=== PATIENT | male | born 1965 | race Two or more races ===

== ENCOUNTER 2022-07-14 01:59 | Inpatient (IN) | payer MEDICARE, OTHER ==
[~2022-07-14] VITALS: Ht 170.2 cm; Wt 86.5 kg
[2022-07-14 02:31] LABS: Basophils # (auto) 0.1 10 ^3/uL (0-0.2); Basophils % (auto) 0.9 % (0.0-2.0); Eosinophils # (auto) 0.4 10 ^3/uL (0-0.8); Eosinophils % (auto) 3.6 % (0.0-7.0); Hematocrit 46.1 % (41.0-53.0); Hemoglobin 15.5 g/dL (13.5-17.5); Lymphocytes # (auto) 1.6 10 ^3/uL (0.4-5.4); Lymphocytes % (auto) 14.4 % (10.0-50.0); Mean Corpuscular Hemoglobin 28.9 pg (28.0-32.0); Mean Corpuscular Hgb Conc. 33.7 g/dL (32.0-36.0); Mean Corpuscular Volume 85.7 fL (80.0-100.0); Monocytes % (auto) 9.2 % (0.0-12.0); Neutrophils # (auto) 7.9 10 ^3/uL (1.6-8.6); Neutrophils % (auto) 71.9 % (37.0-80.0); Nucleated Red Blood Cells % 0.1 %; Red Blood Cells 5.38 10^6/uL (4.5-5.90); Red Cell Distribution Width 16.2 % (11.8-14.3); White Blood Cell 10.9 10^3/uL (4.4-10.8)
[2022-07-14 02:50] LABS: Albumin 3.7 g/dL (3.4-5.0); BUN/Creatinine Ratio 49.5; Calcium 9.1 mg/dL (8.5-10.1); Potassium 4.9 mmol/L (3.5-5.1)
[2022-07-14 02:52] LABS: Bilirubin, Total 0.3 mg/dL (0.2-1.0)
[2022-07-14] MEDS ORDERED: MORPHINE SULFATE INJ 2 MG/ml SYRG IV PRN (06:15)
[2022-07-14] MEDS ORDERED: ENOXAPARIN SOD 100 MG/1 ML SYRINGE SC ONE (06:15)
[2022-07-14] MEDS ORDERED: NITROGLYCERIN 0.4 MG SL TAB SL PRN (06:15)
[2022-07-14] MEDS ORDERED: ONDANSETRON HCL 4 MG/2 ML VIAL IV PRN (06:15)
[2022-07-14] MEDS ORDERED: FUROSEMIDE 40 MG TAB PO SCH (10:00)
[2022-07-14] MEDS ORDERED: ASPirin 81 mg TAB PO SCH (10:00)
[2022-07-14] MEDS ORDERED: PANTOPRAZOLE 40 MG/10 ML VIAL INJ IV SCH (10:00)
[2022-07-14] MEDS ORDERED: CARVEDILOL 3.125 MG TAB PO SCH (10:00)
[2022-07-14 18:00] VITALS: BP 120/82
== END 2022-07-14 19:08 | disposition left against medical advice (07) | DRG 282 ==
LOC: ER 01:59 → EDBD 01:59 → TELE 06:05
PROVIDERS: ADMIT Nurse Practitioner; ATTEND Internal Medicine
DX: I21.4 Non-ST elevation (NSTEMI) myocardial infarction (principal); I11.0 Hypertensive heart disease with heart failure; I50.9 Heart failure, unspecified; Z53.29 Procedure and treatment not carried out because of patient's decision for other reasons; Z20.822 Contact with and (suspected) exposure to COVID-19; Z88.0 Allergy status to penicillin
CPT/HCPCS: 36415; 71045; 80053; 83880; 84484; 85025; 85379; 87426; 93005; 93306; 96372; 96374; C9113; G0378

== ENCOUNTER 2023-06-12 11:01 | Inpatient (IN) | payer MEDICARE, OTHER ==
[~2023-06-12] VITALS: Ht 162.6 cm; Wt 63.3 kg
[2023-06-12 11:43] LABS: Basophils # (auto) 0.1 10 ^3/uL (0-0.2); Basophils % (auto) 0.4 % (0.0-2.0); Eosinophils # (auto) 0.2 10 ^3/uL (0-0.8); Eosinophils % (auto) 1.7 % (0.0-7.0); Hematocrit 45.7 % (41.0-53.0); Hemoglobin 15.4 g/dL (13.5-17.5); Lymphocytes # (auto) 1.1 10 ^3/uL (0.4-5.4); Lymphocytes % (auto) 7.6 % (10.0-50.0); Mean Corpuscular Hemoglobin 28.8 pg (28.0-32.0); Mean Corpuscular Hgb Conc. 33.6 g/dL (32.0-36.0); Mean Corpuscular Volume 85.6 fL (80.0-100.0); Monocytes % (auto) 6.7 % (0.0-12.0); Neutrophils # (auto) 12.2 10 ^3/uL (1.6-8.6); Neutrophils % (auto) 83.6 % (37.0-80.0); Nucleated Red Blood Cells % 0.1 %; Red Blood Cells 5.34 10^6/uL (4.5-5.90); Red Cell Distribution Width 17.8 % (11.8-14.3); White Blood Cell 14.6 10^3/uL (4.4-10.8)
[2023-06-12 11:57] LABS: Alanine Aminotransferase 32 U/L (7-40); Albumin 4.1 g/dL (3.2-4.8); Alkaline Phosphatase 164 U/L (46-116); Anion Gap 7 (5-15); Aspartate Aminotransferase 43 U/L (13-40); BUN/Creatinine Ratio 34.3 (10.0-20.0); Blood Urea Nitrogen 34 mg/dL (9-23); Calcium 8.9 mg/dL (8.7-10.4); Carbon Dioxide 25 mmol/L (20-30); Chloride 108 mmol/L (98-107); Glucose 115 mg/dL (74-106); Potassium 4.4 mmol/L (3.5-5.1); Sodium 140 mmol/L (136-145)
[2023-06-12 11:58] LABS: Bilirubin, Total 0.8 mg/dL (0.2-1.0); Total Protein 6.6 g/dL (5.7-8.2)
[2023-06-12 12:05] LABS: INR 1.07 (0.9-1.15); Partial Thromboplastin Time 28.8 SEC (24.5-34.5); Prothrombin Time 11.2 sec (9.3-11.8)
[2023-06-12 12:57] LABS: Urine Epithelial Cast None Seen /hpf (<5)
[2023-06-12 13:13] VITALS: PULSE 102; RESP 18; O2SAT 97
[2023-06-12 13:21] LABS: Amphetamine Screen, Urine Pos (NEGATIVE); Barbiturate Scree,Urine Neg (NEGATIVE); Benzodiazephine Screen, Urine Neg (NEGATIVE); Cannabinoid Screen, Urine Pos (NEGATIVE); Cocaine Screen, Urine Neg (NEGATIVE); Opiate Scree,Urine Neg (NEGATIVE); Phencyclidine Screen, Urine Neg (NEGATIVE)
[2023-06-12] MEDS ORDERED: PANT40T PO (13:27)
[2023-06-12] MEDS ORDERED: ATOR40TA52 PO (13:27)
[2023-06-12] MEDS ORDERED: ESCI5TAB20 PO (13:27)
[2023-06-12] MEDS ORDERED: FURO40TA4 PO (13:27)
[2023-06-12] MEDS ORDERED: CARV12.544 PO (13:27)
[2023-06-12] MEDS ORDERED: ASPI-628 PO (13:27)
[2023-06-12] MEDS ORDERED: LISI10TA34 PO (13:27)
[2023-06-12] MEDS ORDERED: ONDANSETRON HCL 4 MG/2 ML VIAL IV PRN (13:30)
[2023-06-12] MEDS ORDERED: ACETAMINOPHEN 325 MG TAB PO PRN (13:30)
[2023-06-12] MEDS ORDERED: DOCUSATE SOD 100 MG CAP PO PRN (13:30)
[2023-06-12] MEDS ORDERED: MORPHINE SULFATE INJ 2 MG/ml SYRG IV PRN (13:30)
[2023-06-12] MEDS ORDERED: FUROSEMIDE 100 MG/10ML VIAL IV ONE (13:30)
[2023-06-12] MEDS ORDERED: NITROGLYCERIN 0.4 MG SL TAB SL PRN (13:30)
[2023-06-12] MEDS ORDERED: ASPirin-EC 325mg tab PO ONE (13:30)
[2023-06-12 13:37] LABS: Urine Bacteria FEW /hpf (None Seen); Urine Blood 2+ /uL (Negative); Urine Budding Yeast FEW /hpf (None Seen); Urine Clarity Clear (Clear); Urine Color Colorless (Yellow); Urine Protein, UAD Negative (Negative); Urine Specific Gravity 1.008 (1.001-1.035); Urine Urobilinogen Normal (Negative); Urine WBC 42 /hpf (0 - 3); Urine pH 5.5 (5.0-8.0)
[2023-06-12] MEDS ORDERED: LABETALOL HCL 5 MG/ML 4ML SYRINGE IV PRN (13:45)
[2023-06-12] MEDS ORDERED: cefTRIAXone 1GM/50ML D5W 50 ML IV ONE (14:00)
[2023-06-12] MEDS ORDERED: CIPROFLOXACIN 400MG/200ML 200 ML IV ONE (14:00)
[2023-06-12] MEDS ORDERED: DEXTROSE (50%) 50ML SYRG IV PRN (14:15)
[2023-06-12] MEDS: ACCU-CHEK COMFORT CURVE STRIP VI SCH ×2 (17:00→21:43)
[2023-06-12] MEDS: InsuLIN REG 1unit/0.01ml Soln (100units/ml) SC SCH ×2 (17:32→21:43)
[2023-06-12] MEDS: FUROSEMIDE 40 MG/4 ML VIAL IV SCH (18:45)
[2023-06-12 20:33] VITALS: PULSE 92; RESP 19; O2SAT 96
[2023-06-12] MEDS: CIPROFLOXACIN 400MG/200ML 200 ML IV SCH (21:41)
[2023-06-12] MEDS: CARVEDILOL 12.5 MG TAB PO SCH (21:43)
[2023-06-12] MEDS ORDERED: ATORVASTATIN 20 MG TAB PO SCH (22:00)
[2023-06-12] MEDS ORDERED: ATORVASTATIN 20 MG TAB PO ONE (22:00)
[2023-06-13] VITALS (16 sets, daily range): BP systolic 111–151; BP diastolic 72–109; PULSE 78–99; RESP 14–70; TEMP 97.8–98.6; O2SAT 95–98
[2023-06-13 06:41] LABS: Alanine Aminotransferase 27 U/L (7-40); Albumin 4.3 g/dL (3.2-4.8); Alkaline Phosphatase 162 U/L (46-116); Anion Gap 7 (5-15); Aspartate Aminotransferase 38 U/L (13-40); BUN/Creatinine Ratio 22.2 (10.0-20.0); Calcium 9.4 mg/dL (8.5-10.1); Carbon Dioxide 27 mmol/L (20-30); Chloride 102 mmol/L (98-107); Glucose 99 mg/dL (74-106); LDL Cholesterol 88 mg/dL (< 100); Potassium 3.8 mmol/L (3.5-5.1); Sodium 136 mmol/L (136-145); Triglycerides 120 mg/dL (< 150)
[2023-06-13 06:42] LABS: Bilirubin, Total 1.1 mg/dL (0.2-1.0); Cholesterol 145 mg/dL (< 200); HDL Cholesterol 43 mg/dL (40-59); Total Protein 7.1 g/dL (5.7-8.2)
[2023-06-13 06:43] LABS: Blood Urea Nitrogen 24 mg/dL (9-23)
[2023-06-13] MEDS: FUROSEMIDE 40 MG/4 ML VIAL IV SCH ×2 (06:43→18:18)
[2023-06-13] MEDS: PANTOPRAZOLE 40 MG TAB PO SCH (06:44)
[2023-06-13] MEDS: InsuLIN REG 1unit/0.01ml Soln (100units/ml) SC SCH ×4 (06:44→22:00)
[2023-06-13] MEDS: ACCU-CHEK COMFORT CURVE STRIP VI SCH ×4 (06:44→22:00)
[2023-06-13 07:28] LABS: Basophils # (auto) 0.1 10 ^3/uL (0-0.2); Basophils % (auto) 0.7 % (0.0-2.0); Eosinophils # (auto) 0.3 10 ^3/uL (0-0.8); Eosinophils % (auto) 2.6 % (0.0-7.0); Hematocrit 46.9 % (41.0-53.0); Hemoglobin 15.4 g/dL (13.5-17.5); Lymphocytes # (auto) 1.8 10 ^3/uL (0.4-5.4); Lymphocytes % (auto) 13.8 % (10.0-50.0); Mean Corpuscular Hemoglobin 27.7 pg (28.0-32.0); Mean Corpuscular Hgb Conc. 32.9 g/dL (32.0-36.0); Monocytes # (auto) 1.2 10 ^3/uL (0-1.3); Monocytes % (auto) 9.4 % (0.0-12.0); Neutrophils # (auto) 9.4 10 ^3/uL (1.6-8.6); Neutrophils % (auto) 73.5 % (37.0-80.0); Nucleated Red Blood Cells % 0.1 %; Red Blood Cells 5.58 10^6/uL (4.5-5.90); Red Cell Distribution Width 17.2 % (11.8-14.3); White Blood Cell 12.7 10^3/uL (4.4-10.8)
[2023-06-13] MEDS ORDERED: cefTRIAXone 1GM/50ML D5W 50 ML IV SCH (09:00)
[2023-06-13] MEDS ORDERED: HEPARIN SODIUM (PORCINE) 5000 UNITS/ML 1ML VIAL IV ONE (09:15)
[2023-06-13] MEDS ORDERED: CLOPIDOGREL 300 MG TAB PO ONE (09:15)
[2023-06-13] MEDS ORDERED: HEPARIN DRIP/D5W 100UNITS/ML 250 ML IV SCH (09:15)
[2023-06-13 09:40] LABS: INR 1.09 (0.9-1.15); Partial Thromboplastin Time 30.2 SEC (24.5-34.5); Prothrombin Time 11.4 sec (9.3-11.8)
[2023-06-13] MEDS: CARVEDILOL 12.5 MG TAB PO SCH ×2 (10:00→22:06)
[2023-06-13] MEDS: LISINOPRIL 10 MG TAB PO SCH (10:00)
[2023-06-13] MEDS ORDERED: CLOPIDOGREL BISULFATE 75 MG TAB PO SCH (10:00)
[2023-06-13] MEDS: ASPirin-EC 81 mg tab PO SCH (10:00)
[2023-06-13] MEDS: CIPROFLOXACIN 400MG/200ML 200 ML IV SCH ×2 (10:00→22:04)
[2023-06-13] MEDS ORDERED: ENOXAPARIN SOD 40 MG/0.4 ML SYRINGE SC SCH (10:00)
[2023-06-13] MEDS ORDERED: ANGIOMAX 250 MG VIAL IV ONE (11:03)
[2023-06-13] MEDS ORDERED: VERAPAMIL 2.5MG/ML INJ 2ML VIAL IV ONE (11:03)
[2023-06-13] MEDS ORDERED: SODIUM CHL 0.9% 0 ML ONE (11:04)
[2023-06-13] MEDS ORDERED: LIDOCAINE 2%HCL (LOCAL ANESTH.) INJ 20ML MDV ONE (11:04)
[2023-06-13] MEDS ORDERED: fentaNYL CITRATE 100 MCG/2 ML VL ONE (11:04)
[2023-06-13] MEDS ORDERED: MIDAZOLAM HCL 2MG/2ML 2ml VIAL (1mg/ml) ONE (11:05)
[2023-06-13] MEDS ORDERED: HEPARIN SODIUM (PORCINE) 5000 UNITS/ML 1ML VIAL ONE (11:08)
[2023-06-13] MEDS ORDERED: ATORVASTATIN 20 MG TAB PO SCH (22:00)
[2023-06-14] VITALS (7 sets, daily range): BP systolic 110–146; BP diastolic 67–94; PULSE 59–107; RESP 18–86; TEMP 97.4–98.6; O2SAT 92–100
[2023-06-14] MEDS: ACCU-CHEK COMFORT CURVE STRIP VI SCH ×4 (06:09→22:00)
[2023-06-14] MEDS: InsuLIN REG 1unit/0.01ml Soln (100units/ml) SC SCH ×4 (06:09→22:00)
[2023-06-14] MEDS: PANTOPRAZOLE 40 MG TAB PO SCH (06:19)
[2023-06-14] MEDS: FUROSEMIDE 40 MG/4 ML VIAL IV SCH ×2 (06:19→18:37)
[2023-06-14 06:57] LABS: Alanine Aminotransferase 24 U/L (7-40); Alkaline Phosphatase 156 U/L (46-116); Anion Gap 6 (5-15); Aspartate Aminotransferase 29 U/L (13-40); BUN/Creatinine Ratio 24.7 (10.0-20.0); Blood Urea Nitrogen 22 mg/dL (9-23); Calcium 9.1 mg/dL (8.7-10.4); Carbon Dioxide 27 mmol/L (20-30); Chloride 102 mmol/L (98-107); Glucose 114 mg/dL (74-106); Magnesium 1.9 mg/dL (1.6-2.6); Sodium 135 mmol/L (136-145)
[2023-06-14 06:58] LABS: Albumin 4.2 g/dL (3.2-4.8); Bilirubin, Total 1.1 mg/dL (0.2-1.0)
[2023-06-14 06:59] LABS: Basophils # (auto) 0.1 10 ^3/uL (0-0.2); Basophils % (auto) 0.8 % (0.0-2.0); Eosinophils # (auto) 0.3 10 ^3/uL (0-0.8); Eosinophils % (auto) 2.4 % (0.0-7.0); Hematocrit 49.5 % (41.0-53.0); Hemoglobin 16.5 g/dL (13.5-17.5); Lymphocytes # (auto) 1.6 10 ^3/uL (0.4-5.4); Lymphocytes % (auto) 14.9 % (10.0-50.0); Mean Corpuscular Hemoglobin 27.9 pg (28.0-32.0); Mean Corpuscular Hgb Conc. 33.3 g/dL (32.0-36.0); Mean Corpuscular Volume 83.7 fL (80.0-100.0); Monocytes # (auto) 1.1 10 ^3/uL (0-1.3); Monocytes % (auto) 10.5 % (0.0-12.0); Neutrophils # (auto) 7.6 10 ^3/uL (1.6-8.6); Neutrophils % (auto) 71.4 % (37.0-80.0); Nucleated Red Blood Cells % 0.2 %; Red Blood Cells 5.91 10^6/uL (4.5-5.90); Red Cell Distribution Width 17.3 % (11.8-14.3); White Blood Cell 10.6 10^3/uL (4.4-10.8)
[2023-06-14 08:21] LABS: CRP High Sensitivity 0.27 mg/dL (<1.0)
[2023-06-14] MEDS: ASPirin-EC 81 mg tab PO SCH (11:04)
[2023-06-14] MEDS: CARVEDILOL 12.5 MG TAB PO SCH ×2 (11:04→22:47)
[2023-06-14] MEDS: MAGNESIUM SULFATE 1GM/100ML 100 ML IV SCH ×2 (11:04→12:08)
[2023-06-14] MEDS: LISINOPRIL 10 MG TAB PO SCH (11:05)
[2023-06-14] MEDS ORDERED: GADOTERATE MEG 10 MMOL/20ml INJ (0.5MMOL/ml) IV ONE (17:42)
[2023-06-14] MEDS: NITROFURANTOIN 100 mg CAP PO SCH (22:46)
[2023-06-14] MEDS: ATORVASTATIN 20 MG TAB PO SCH (22:49)
[2023-06-15] VITALS (8 sets, daily range): BP systolic 100–113; BP diastolic 63–80; PULSE 67–89; RESP 18–20; TEMP 97.6–98.6; O2SAT 91–100
[2023-06-15 05:16] LABS: Basophils # (auto) 0.1 10 ^3/uL (0-0.2); Basophils % (auto) 0.9 % (0.0-2.0); Eosinophils # (auto) 0.3 10 ^3/uL (0-0.8); Eosinophils % (auto) 2.8 % (0.0-7.0); Hematocrit 47.3 % (41.0-53.0); Hemoglobin 15.5 g/dL (13.5-17.5); Lymphocytes # (auto) 1.5 10 ^3/uL (0.4-5.4); Lymphocytes % (auto) 14.2 % (10.0-50.0); Mean Corpuscular Hemoglobin 27.8 pg (28.0-32.0); Mean Corpuscular Hgb Conc. 32.8 g/dL (32.0-36.0); Mean Corpuscular Volume 84.5 fL (80.0-100.0); Neutrophils # (auto) 7.5 10 ^3/uL (1.6-8.6); Neutrophils % (auto) 72.1 % (37.0-80.0); Nucleated Red Blood Cells % 0.1 %; Red Blood Cells 5.59 10^6/uL (4.5-5.90); White Blood Cell 10.4 10^3/uL (4.4-10.8)
[2023-06-15 05:36] LABS: Alanine Aminotransferase 21 U/L (7-40); Albumin 3.9 g/dL (3.2-4.8); Alkaline Phosphatase 142 U/L (46-116); Anion Gap 6 (5-15); Aspartate Aminotransferase 26 U/L (13-40); BUN/Creatinine Ratio 19.8 (10.0-20.0); Bilirubin, Total 0.7 mg/dL (0.2-1.0); Blood Urea Nitrogen 21 mg/dL (9-23); Calcium 8.9 mg/dL (8.7-10.4); Carbon Dioxide 26 mmol/L (20-30); Chloride 101 mmol/L (98-107); Glucose 110 mg/dL (74-106); Magnesium 2.2 mg/dL (1.6-2.6); Potassium 4.2 mmol/L (3.5-5.1); Sodium 133 mmol/L (136-145); Total Protein 6.7 g/dL (5.7-8.2)
[2023-06-15] MEDS: ACCU-CHEK COMFORT CURVE STRIP VI SCH ×4 (06:30→22:00)
[2023-06-15] MEDS: FUROSEMIDE 40 MG/4 ML VIAL IV SCH ×2 (07:36→18:11)
[2023-06-15] MEDS: PANTOPRAZOLE 40 MG TAB PO SCH (07:37)
[2023-06-15] MEDS: InsuLIN REG 1unit/0.01ml Soln (100units/ml) SC SCH ×4 (07:44→22:00)
[2023-06-15] MEDS: ASPirin-EC 81 mg tab PO SCH (09:06)
[2023-06-15] MEDS: NITROFURANTOIN 100 mg CAP PO SCH (09:06)
[2023-06-15] MEDS: CITALOPRAM HYDROBR 20 MG TAB PO SCH (09:06)
[2023-06-15] MEDS: CARVEDILOL 12.5 MG TAB PO SCH (09:07)
[2023-06-15] MEDS: LISINOPRIL 10 MG TAB PO SCH (10:00)
[2023-06-15 13:07] LABS: Body Fluid Red Blood Cells 3 CUMM (0-2000); Body Fluid White Blood Cells 3 CUMM (0-200)
[2023-06-16] VITALS (7 sets, daily range): BP systolic 103–134; BP diastolic 70–89; PULSE 57–84; RESP 18–21; TEMP 97.7–98.3; O2SAT 96–100
[2023-06-16] MEDS: CARVEDILOL 12.5 MG TAB PO SCH ×3 (02:16→21:28)
[2023-06-16] MEDS: NITROFURANTOIN 100 mg CAP PO SCH ×3 (02:16→21:26)
[2023-06-16] MEDS: ATORVASTATIN 20 MG TAB PO SCH ×2 (02:17→21:27)
[2023-06-16] MEDS: InsuLIN REG 1unit/0.01ml Soln (100units/ml) SC SCH ×4 (06:46→21:45)
[2023-06-16] MEDS: ACCU-CHEK COMFORT CURVE STRIP VI SCH ×4 (06:46→21:28)
[2023-06-16] MEDS: FUROSEMIDE 40 MG/4 ML VIAL IV SCH ×2 (06:48→17:14)
[2023-06-16] MEDS: PANTOPRAZOLE 40 MG TAB PO SCH (06:48)
[2023-06-16 08:06] LABS: PSA Free 1.32 ng/mL; Prostate Specific Antigen 13.1 ng/mL (0.0-4.0)
[2023-06-16] MEDS: ASPirin-EC 81 mg tab PO SCH (09:19)
[2023-06-16] MEDS: CITALOPRAM HYDROBR 20 MG TAB PO SCH (09:19)
[2023-06-16] MEDS: LISINOPRIL 10 MG TAB PO SCH (09:20)
[2023-06-16] MEDS ORDERED: ALBUAER3 INH (13:20)
[2023-06-16] MEDS ORDERED: METF-370 PO (13:20)
[2023-06-17 05:00] VITALS: BP 123/91; PULSE 84; RESP 20; TEMP 98.2; O2SAT 100
[2023-06-17] MEDS: PANTOPRAZOLE 40 MG TAB PO SCH (05:43)
[2023-06-17] MEDS: FUROSEMIDE 40 MG/4 ML VIAL IV SCH (05:45)
[2023-06-17] MEDS: ACCU-CHEK COMFORT CURVE STRIP VI SCH ×2 (05:46→11:46)
[2023-06-17] MEDS: InsuLIN REG 1unit/0.01ml Soln (100units/ml) SC SCH ×2 (05:47→11:30)
[2023-06-17 08:00] VITALS: PULSE 80; PULSE 85; RESP 20; O2SAT 94
[2023-06-17 09:00] VITALS: BP 138/90; PULSE 85; RESP 18; TEMP 98.1; O2SAT 94
[2023-06-17] MEDS: ASPirin-EC 81 mg tab PO SCH (09:34)
[2023-06-17] MEDS: NITROFURANTOIN 100 mg CAP PO SCH (09:34)
[2023-06-17] MEDS: CARVEDILOL 12.5 MG TAB PO SCH (09:35)
[2023-06-17] MEDS: LISINOPRIL 10 MG TAB PO SCH (09:35)
[2023-06-17] MEDS: CITALOPRAM HYDROBR 20 MG TAB PO SCH (09:35)
[2023-06-17 13:00] VITALS: BP 129/81; PULSE 81; RESP 18; TEMP 98.1; O2SAT 94
[2023-06-17 16:59] VITALS: BP 129/79; PULSE 84; RESP 20; TEMP 98.4; O2SAT 94
== END 2023-06-17 18:56 | disposition home health service (06) | DRG 280 ==
LOC: EDBD 11:01 → ER 11:01 → TELE 13:35 → TELE-WESTW 06-13 15:56
PROVIDERS: ADMIT Internal Medicine Geriatric Medicine; ATTEND Internal Medicine
PROC: 4A023N7 Measurement of Cardiac Sampling and Pressure, Left Heart, Percutaneous Approach (ICD-10-PCS; principal; 2023-06-13)
PROC: B211YZZ Fluoroscopy of Multiple Coronary Arteries using Other Contrast (ICD-10-PCS; 2023-06-13)
PROC: 0V9 Male Reproductive System, Drainage (ICD-10-PCS; 2023-06-15)
DX: I13.0 Hypertensive heart and chronic kidney disease with heart failure and stage 1 through stage 4 chronic kidney disease, or unspecified chronic kidney disease (principal); I21.A1 Myocardial infarction type 2; I50.23 Acute on chronic systolic (congestive) heart failure; J96.01 Acute respiratory failure with hypoxia; I47.10 Supraventricular tachycardia, unspecified; N39.0 Urinary tract infection, site not specified; I47.20 Ventricular tachycardia, unspecified; I42.7 Cardiomyopathy due to drug and external agent; N18.9 Chronic kidney disease, unspecified; F15.10 Other stimulant abuse, uncomplicated; I34.0 Nonrheumatic mitral (valve) insufficiency; I27.20 Pulmonary hypertension, unspecified; F14.10 Cocaine abuse, uncomplicated; E66.9 Obesity, unspecified; N43.3 Hydrocele, unspecified; E27.9 Disorder of adrenal gland, unspecified; H91.90 Unspecified hearing loss, unspecified ear; K76.0 Fatty (change of) liver, not elsewhere classified; N40.0 Benign prostatic hyperplasia without lower urinary tract symptoms; Z87.891 Personal history of nicotine dependence; Z88.0 Allergy status to penicillin
CPT/HCPCS: 36415; 71045; 74176; 74183; 76870; 76942; 80053; 80061; 80307; 81001; 82140; 82962; 83036; 83735; 83835; 83880; 84154; 84443; 84484; 85025; 85610; 85730; 86141; 87040; 87086; 87205; 89051; 93005; 93306; 93458; 96365; 96367; 96375; 99152; 99153; G0378; J1815; J2250

== ENCOUNTER 2023-09-12 03:28 | Inpatient (IN) | payer OTHER ==
[2023-09-09] MEDS: DOBUTamine 1000MCG/ML 250 ML IV SCH (08:45)
[~2023-09-12] VITALS: Ht 162.6 cm; Wt 65.6 kg
[2023-09-12] VITALS (7 sets, daily range): BP systolic 118–142; BP diastolic 75–97; PULSE 84–103; RESP 16–30; TEMP 97.2–98.7; O2SAT 96–100
[~2023-09-12 03:28] MED LIST: ALBUAER3 INH; ASPI-628 PO; ATOR40TA52 PO; CARV12.544 PO; ESCI5TAB20 PO; FURO40TA4 PO; LISI10TA34 PO; METF-370 PO; PANT40T PO
[2023-09-12 04:43] LABS: Basophils # (auto) 0.1 10 ^3/uL (0-0.2); Basophils % (auto) 0.6 % (0.0-2.0); Eosinophils # (auto) 0.2 10 ^3/uL (0-0.8); Eosinophils % (auto) 1.9 % (0.0-7.0); Hematocrit 44.3 % (41.0-53.0); Hemoglobin 14.3 g/dL (13.5-17.5); Lymphocytes % (auto) 8.4 % (10.0-50.0); Mean Corpuscular Hemoglobin 27.9 pg (28.0-32.0); Mean Corpuscular Hgb Conc. 32.3 g/dL (32.0-36.0); Mean Corpuscular Volume 86.5 fL (80.0-100.0); Monocytes % (auto) 8.4 % (0.0-12.0); Neutrophils # (auto) 9.3 10 ^3/uL (1.6-8.6); Neutrophils % (auto) 80.7 % (37.0-80.0); Red Blood Cells 5.12 10^6/uL (4.5-5.90); Red Cell Distribution Width 16.9 % (11.8-14.3); White Blood Cell 11.5 10^3/uL (4.4-10.8)
[2023-09-12 05:01] LABS: Alanine Aminotransferase 65 U/L (7-40); Albumin 4.2 g/dL (3.2-4.8); Alkaline Phosphatase 209 U/L (46-116); Anion Gap 8 (5-15); Aspartate Aminotransferase 79 U/L (13-40); BUN/Creatinine Ratio 29.8 (10.0-20.0); Bilirubin, Total 0.4 mg/dL (0.2-1.0); Blood Urea Nitrogen 28 mg/dL (9-23); Calcium 9.2 mg/dL (8.5-10.1); Carbon Dioxide 25 mmol/L (20-30); Chloride 107 mmol/L (98-107); Glucose 116 mg/dL (74-106); Potassium 4.7 mmol/L (3.5-5.1); Sodium 140 mmol/L (136-145)
[2023-09-12] MEDS ORDERED: MORPHINE SULFATE INJ 2 MG/ml SYRG IV PRN (06:00)
[2023-09-12] MEDS ORDERED: ONDANSETRON HCL 4 MG/2 ML VIAL IV PRN (06:00)
[2023-09-12] MEDS ORDERED: DOCUSATE SOD 100 MG CAP PO PRN (06:00)
[2023-09-12] MEDS ORDERED: ACETAMINOPHEN 325 MG TAB PO PRN (06:00)
[2023-09-12] MEDS ORDERED: DEXTROSE (50%) 50ML SYRG IV PRN (06:30)
[2023-09-12] MEDS: ASPirin 325 MG TAB PO ONE (06:35)
[2023-09-12] MEDS: NITROGLYCERIN 0.4 MG SL TAB SL PRN (06:36)
[2023-09-12] MEDS ORDERED: hydrALAZINE HCL 20 MG/ML VL IV PRN (06:45)
[2023-09-12] MEDS: ACCU-CHEK COMFORT CURVE STRIP VI SCH (07:34)
[2023-09-12] MEDS: InsuLIN REG 1unit/0.01ml Soln (100units/ml) SC SCH (07:35)
[2023-09-12] MEDS: ENOXAPARIN SOD 100 MG/1 ML SYRINGE SC ONE (07:56)
[2023-09-12] MEDS: FUROSEMIDE 40 MG/4 ML VIAL IV ONE (07:56)
[2023-09-12 08:50] LABS: Amphetamine Screen, Urine Pos (NEGATIVE)
[2023-09-12 08:51] LABS: Barbiturate Scree,Urine Neg (NEGATIVE); Benzodiazephine Screen, Urine Neg (NEGATIVE); Cannabinoid Screen, Urine Pos (NEGATIVE); Cocaine Screen, Urine Neg (NEGATIVE); Opiate Scree,Urine Neg (NEGATIVE); Phencyclidine Screen, Urine Neg (NEGATIVE)
[2023-09-12] MEDS: ASPirin 81 mg TAB PO SCH (11:21)
[2023-09-12] MEDS: CARVEDILOL 12.5 MG TAB PO SCH (11:22)
[2023-09-12] MEDS: FUROSEMIDE 40 MG/4 ML VIAL IV SCH (17:46)
[2023-09-12] MEDS: ATORVASTATIN 20 MG TAB PO SCH (23:14)
[2023-09-13] VITALS (7 sets, daily range): BP systolic 109–131; BP diastolic 75–87; PULSE 73–94; RESP 16–20; TEMP 97.1–98.7; O2SAT 96–100
[2023-09-13 05:10] LABS: Urine Bacteria FEW /hpf (None Seen); Urine Blood 1+ /uL (Negative); Urine Clarity Clear (Clear); Urine Color Colorless (Yellow); Urine Protein, UAD Negative (Negative); Urine Specific Gravity 1.008 (1.001-1.035); Urine Urobilinogen Normal (Negative); Urine WBC 1 /hpf (0 - 3)
[2023-09-13 07:28] LABS: Basophils # (auto) 0 10 ^3/uL (0-0.2); Basophils % (auto) 0.4 % (0.0-2.0); Eosinophils # (auto) 0.2 10 ^3/uL (0-0.8); Eosinophils % (auto) 2.1 % (0.0-7.0); Hematocrit 47.8 % (41.0-53.0); Hemoglobin 15.4 g/dL (13.5-17.5); Lymphocytes # (auto) 1.5 10 ^3/uL (0.4-5.4); Lymphocytes % (auto) 13.4 % (10.0-50.0); Mean Corpuscular Hgb Conc. 32.3 g/dL (32.0-36.0); Mean Corpuscular Volume 86.9 fL (80.0-100.0); Monocytes # (auto) 1.2 10 ^3/uL (0-1.3); Monocytes % (auto) 10.5 % (0.0-12.0); Neutrophils % (auto) 73.6 % (37.0-80.0); Nucleated Red Blood Cells % 0.2 %; Red Cell Distribution Width 16.7 % (11.8-14.3); White Blood Cell 10.9 10^3/uL (4.4-10.8)
[2023-09-13 07:30] LABS: Anion Gap 6 (5-15); Calcium 8.7 mg/dL (8.5-10.1); Carbon Dioxide 26 mmol/L (20-30); Chloride 102 mmol/L (98-107); Potassium 4.4 mmol/L (3.5-5.1)
[2023-09-13 07:36] LABS: BUN/Creatinine Ratio 22.1 (10.0-20.0); Blood Urea Nitrogen 19 mg/dL (9-23); Glucose 97 mg/dL (74-106); Sodium 134 mmol/L (136-145)
[2023-09-13] MEDS: LOSARTAN POTASSIUM 50 MG TAB PO SCH (09:08)
[2023-09-13] MEDS: HYDROcodone-ACET 5/325MG TAB PO PRN (09:09)
[2023-09-14] VITALS (9 sets, daily range): BP systolic 97–166; BP diastolic 62–81; PULSE 46–98; RESP 16–18; TEMP 97–98.3; O2SAT 95–100
[2023-09-14 06:05] LABS: Basophils # (auto) 0 10 ^3/uL (0-0.2); Basophils % (auto) 0.3 % (0.0-2.0); Eosinophils # (auto) 0.2 10 ^3/uL (0-0.8); Hematocrit 49.2 % (41.0-53.0); Hemoglobin 16.6 g/dL (13.5-17.5); Lymphocytes % (auto) 9.7 % (10.0-50.0); Mean Corpuscular Hemoglobin 28.7 pg (28.0-32.0); Mean Corpuscular Hgb Conc. 33.8 g/dL (32.0-36.0); Mean Corpuscular Volume 84.9 fL (80.0-100.0); Monocytes # (auto) 1.2 10 ^3/uL (0-1.3); Monocytes % (auto) 11.1 % (0.0-12.0); Neutrophils # (auto) 8.3 10 ^3/uL (1.6-8.6); Neutrophils % (auto) 76.9 % (37.0-80.0); Nucleated Red Blood Cells % 0.3 %; Red Cell Distribution Width 16.2 % (11.8-14.3); White Blood Cell 10.8 10^3/uL (4.4-10.8)
[2023-09-14 06:10] LABS: Anion Gap 6 (5-15); Carbon Dioxide 27 mmol/L (20-30); Chloride 101 mmol/L (98-107); Potassium 4.5 mmol/L (3.5-5.1); Sodium 134 mmol/L (136-145)
[2023-09-14 06:16] LABS: BUN/Creatinine Ratio 23.1 (10.0-20.0); Blood Urea Nitrogen 24 mg/dL (9-23); Glucose 90 mg/dL (74-106)
[2023-09-14] MEDS: DOBUTamine 1000MCG/ML 250 ML IV SCH (16:57)
[2023-09-15] VITALS (9 sets, daily range): BP systolic 104–146; BP diastolic 57–80; PULSE 61–87; RESP 16–18; TEMP 97.1–98.7; O2SAT 90–98
[2023-09-15 06:33] LABS: Anion Gap 6 (5-15); Carbon Dioxide 28 mmol/L (20-30); Chloride 102 mmol/L (98-107); Potassium 4.6 mmol/L (3.5-5.1); Sodium 136 mmol/L (136-145)
[2023-09-15 06:34] LABS: Calcium 8.9 mg/dL (8.5-10.1)
[2023-09-15 06:36] LABS: Basophils # (auto) 0.1 10 ^3/uL (0-0.2); Basophils % (auto) 0.5 % (0.0-2.0); Eosinophils # (auto) 0.3 10 ^3/uL (0-0.8); Eosinophils % (auto) 2.3 % (0.0-7.0); Hematocrit 47.6 % (41.0-53.0); Lymphocytes # (auto) 1.3 10 ^3/uL (0.4-5.4); Lymphocytes % (auto) 11.3 % (10.0-50.0); Mean Corpuscular Hemoglobin 28.5 pg (28.0-32.0); Mean Corpuscular Hgb Conc. 33.7 g/dL (32.0-36.0); Mean Corpuscular Volume 84.7 fL (80.0-100.0); Monocytes # (auto) 1.1 10 ^3/uL (0-1.3); Monocytes % (auto) 9.4 % (0.0-12.0); Neutrophils # (auto) 8.6 10 ^3/uL (1.6-8.6); Neutrophils % (auto) 76.5 % (37.0-80.0); Nucleated Red Blood Cells % 0.2 %; Red Blood Cells 5.62 10^6/uL (4.5-5.90); Red Cell Distribution Width 16.3 % (11.8-14.3); White Blood Cell 11.2 10^3/uL (4.4-10.8)
[2023-09-15 06:39] LABS: BUN/Creatinine Ratio 26.6 (10.0-20.0); Blood Urea Nitrogen 33 mg/dL (9-23); Glucose 137 mg/dL (74-106)
[2023-09-15 17:30] LABS: Body Fluid Polymorphonuclear 2 % (0-25); Body Fluid Red Blood Cells 0 CUMM (0-2000); Body Fluid White Blood Cells 15 CUMM (0-200)
[2023-09-15] MEDS ORDERED: CARV12.544 PO (17:34)
[2023-09-15] MEDS ORDERED: LISI10TA34 PO (17:34)
[2023-09-15] MEDS ORDERED: FURO40TA4 PO (17:34)
== END 2023-09-15 21:03 | disposition home or self-care (01) | DRG 280 ==
LOC: ER 03:28 → TELE 05:56 → TELE-WESTW 09:43 → WEST WING 09-14 12:43
PROVIDERS: ADMIT Nurse Practitioner Family; ATTEND Nurse Practitioner Family
PROC: 0V953ZZ Drainage of Scrotum, Percutaneous Approach (ICD-10-PCS; principal; 2023-09-15)
DX: I11.0 Hypertensive heart disease with heart failure (principal); I50.23 Acute on chronic systolic (congestive) heart failure; I21.A1 Myocardial infarction type 2; I47.10 Supraventricular tachycardia, unspecified; I42.7 Cardiomyopathy due to drug and external agent; I42.0 Dilated cardiomyopathy; D72.829 Elevated white blood cell count, unspecified; E11.9 Type 2 diabetes mellitus without complications; I25.10 Atherosclerotic heart disease of native coronary artery without angina pectoris; N43.3 Hydrocele, unspecified; H91.93 Unspecified hearing loss, bilateral; D35.00 Benign neoplasm of unspecified adrenal gland; F15.10 Other stimulant abuse, uncomplicated; Z88.0 Allergy status to penicillin; Z91.119 Patient's noncompliance with dietary regimen due to unspecified reason; Z79.4 Long term (current) use of insulin
CPT/HCPCS: 36415; 71045; 76870; 76942; 80048; 80053; 80307; 81001; 82962; 83880; 83986; 84484; 85025; 87205; 89051; 93005; 99291; C1729; G0378; J1815

== ENCOUNTER 2023-10-31 14:09 | Inpatient (IN) | payer OTHER ==
[~2023-10-31] VITALS: Ht 162.6 cm; Wt 67.5 kg
[2023-10-31 14:27] VITALS: PULSE 88; RESP 28; O2SAT 91
[2023-10-31 15:13] LABS: Anion Gap 7 (5-15); Carbon Dioxide 28 mmol/L (20-30); Chloride 106 mmol/L (98-107); Potassium 4.1 mmol/L (3.5-5.1); Sodium 141 mmol/L (136-145)
[2023-10-31 15:14] LABS: Calcium 9.4 mg/dL (8.7-10.4)
[2023-10-31] MEDS: NALOXONE HCL 0.4 MG/ML VIAL IV ONE (15:14)
[2023-10-31 15:19] LABS: BUN/Creatinine Ratio 32.5 (10.0-20.0); Blood Urea Nitrogen 26 mg/dL (9-23); Glucose 129 mg/dL (74-106); Magnesium 2.1 mg/dL (1.6-2.6)
[2023-10-31 15:20] LABS: Basophils # (auto) 0.1 10 ^3/uL (0-0.2); Basophils % (auto) 0.3 % (0.0-2.0); Eosinophils # (auto) 0.2 10 ^3/uL (0-0.8); Hematocrit 49.6 % (41.0-53.0); Hemoglobin 16.2 g/dL (13.5-17.5); Lymphocytes # (auto) 0.9 10 ^3/uL (0.4-5.4); Lymphocytes % (auto) 5.9 % (10.0-50.0); Mean Corpuscular Hemoglobin 28.5 pg (28.0-32.0); Mean Corpuscular Hgb Conc. 32.7 g/dL (32.0-36.0); Mean Corpuscular Volume 87.1 fL (80.0-100.0); Monocytes % (auto) 6.2 % (0.0-12.0); Neutrophils # (auto) 13.6 10 ^3/uL (1.6-8.6); Neutrophils % (auto) 86.6 % (37.0-80.0); Nucleated Red Blood Cells % 0.2 %; Red Cell Distribution Width 16.7 % (11.8-14.3); White Blood Cell 15.7 10^3/uL (4.4-10.8)
[2023-10-31] MEDS: FUROSEMIDE 40 MG/4 ML VIAL IV ONE (15:20)
[2023-10-31 15:48] LABS: Base Excess -0.6 mmol/L (-2.0-2.0)
[2023-10-31 16:00] VITALS: PULSE 81; O2SAT 97
[2023-10-31] MEDS ORDERED: NITROGLYCERIN 0.4 MG SL TAB SL PRN (16:45)
[2023-10-31] MEDS ORDERED: DOCUSATE SOD 100 MG CAP PO PRN (16:45)
[2023-10-31] MEDS ORDERED: ACETAMINOPHEN 325 MG TAB PO PRN (16:45)
[2023-10-31] MEDS ORDERED: HYDROcodone-ACET 5/325MG TAB PO PRN (16:45)
[2023-10-31] MEDS ORDERED: MORPHINE SULFATE INJ 2 MG/ml SYRG IV PRN ×2 (16:45)
[2023-10-31] MEDS ORDERED: ONDANSETRON HCL 4 MG/2 ML VIAL IV PRN (16:45)
[2023-10-31 16:50] VITALS: BP 154/101; PULSE 81; RESP 28; TEMP 97.1; O2SAT 97
[2023-10-31 17:00] LABS: Urine Bacteria FEW /hpf (None Seen); Urine Blood Negative /uL (Negative); Urine Clarity Clear (Clear); Urine Color Light-Yellow (Yellow); Urine Hyaline Cast FEW /lpf (0 - 2); Urine Mucus FEW (None Seen); Urine Protein, UAD 1+ (Negative); Urine Specific Gravity 1.019 (1.001-1.035); Urine Urobilinogen Normal (Negative); Urine WBC 12 /hpf (0 - 3); Urine pH 5.5 (5.0-9.0)
[2023-10-31] MEDS ORDERED: HEPARIN DRIP/D5W 100UNITS/ML 250 ML IV SCH (17:00)
[2023-10-31] MEDS: FUROSEMIDE 40 MG/4 ML VIAL ONE (18:05)
[2023-10-31] MEDS: FUROSEMIDE 40 MG/4 ML VIAL IV SCH (18:05)
[2023-10-31 18:24] LABS: INR 0.95 (0.9-1.15); Partial Thromboplastin Time 26.5 SEC (24.5-34.5); Prothrombin Time 10.1 sec (9.3-11.8)
[2023-10-31 18:32] LABS: Base Excess 0.1 mmol/L (-2.0-2.0)
[2023-10-31] MEDS: HEPARIN DRIP/D5W 100UNITS/ML 250 ML IV SCH (18:34)
[2023-10-31 18:35] VITALS: PULSE 103; O2SAT 100
[2023-10-31] MEDS: LIDOCAINE 2%HCL (LOCAL ANESTH.) INJ 20ML MDV ONE (19:40)
[2023-10-31] MEDS: IPRATROPIUM BROM 0.5 MG/2.5ML INH SOL NEB SCH (19:49)
[2023-10-31] MEDS: ALBUTEROL SULF 2.5 MG/0.5ML(0.5%) NEB SOLN NEB SCH (19:49)
[2023-10-31 22:05] VITALS: PULSE 91; O2SAT 98
[2023-11-01] VITALS (14 sets, daily range): PULSE 53–111; RESP 18–29; O2SAT 96–100
[2023-11-01] MEDS: HEPARIN DRIP/D5W 100UNITS/ML 250 ML IV SCH ×3 (04:20→12:27)
[2023-11-01] MEDS ORDERED: MORPHINE SULFATE INJ 2 MG/ml SYRG IV PRN (06:15)
[2023-11-01] MEDS ORDERED: ACETAMINOPHEN 325 MG TAB PO PRN (06:15)
[2023-11-01] MEDS ORDERED: NITROGLYCERIN 0.4 MG SL TAB SL PRN (06:15)
[2023-11-01] MEDS ORDERED: ONDANSETRON HCL 4 MG/2 ML VIAL IV PRN (06:15)
[2023-11-01] MEDS ORDERED: DOCUSATE SOD 100 MG CAP PO PRN (06:15)
[2023-11-01 06:46] LABS: Basophils # (auto) 0.1 10 ^3/uL (0-0.2); Basophils % (auto) 0.6 % (0.0-2.0); Eosinophils # (auto) 0.2 10 ^3/uL (0-0.8); Eosinophils % (auto) 1.8 % (0.0-7.0); Hematocrit 47.8 % (41.0-53.0); Hemoglobin 15.8 g/dL (13.5-17.5); Lymphocytes # (auto) 1.3 10 ^3/uL (0.4-5.4); Lymphocytes % (auto) 10.4 % (10.0-50.0); Mean Corpuscular Hemoglobin 28.3 pg (28.0-32.0); Mean Corpuscular Hgb Conc. 33.1 g/dL (32.0-36.0); Mean Corpuscular Volume 85.7 fL (80.0-100.0); Monocytes # (auto) 1.1 10 ^3/uL (0-1.3); Monocytes % (auto) 8.5 % (0.0-12.0); Neutrophils # (auto) 9.7 10 ^3/uL (1.6-8.6); Neutrophils % (auto) 78.7 % (37.0-80.0); Nucleated Red Blood Cells % 0.1 %; Red Blood Cells 5.58 10^6/uL (4.5-5.90); Red Cell Distribution Width 16.6 % (11.8-14.3); White Blood Cell 12.3 10^3/uL (4.4-10.8)
[2023-11-01] MEDS: FUROSEMIDE 40 MG/4 ML VIAL IV SCH (06:53)
[2023-11-01 06:59] LABS: Alanine Aminotransferase 45 U/L (7-40); Alkaline Phosphatase 169 U/L (46-116); Anion Gap 10 (5-15); Aspartate Aminotransferase 40 U/L (13-40); BUN/Creatinine Ratio 24.1 (10.0-20.0); Blood Urea Nitrogen 20 mg/dL (9-23); Calcium 9.2 mg/dL (8.7-10.4); Carbon Dioxide 27 mmol/L (20-30); Chloride 102 mmol/L (98-107); Glucose 96 mg/dL (74-106); Potassium 3.8 mmol/L (3.5-5.1); Sodium 139 mmol/L (136-145)
[2023-11-01 07:00] LABS: INR 1.01 (0.9-1.15); Prothrombin Time 10.7 sec (9.3-11.8); Total Protein 6.7 g/dL (5.7-8.2)
[2023-11-01] MEDS: ALBUTEROL SULF 2.5 MG/0.5ML(0.5%) NEB SOLN NEB SCH (09:33)
[2023-11-01] MEDS: IPRATROPIUM BROM 0.5 MG/2.5ML INH SOL NEB SCH (09:33)
[2023-11-01] MEDS ORDERED: ENOXAPARIN SOD 40 MG/0.4 ML SYRINGE SC SCH (10:00)
[2023-11-01 10:33] LABS: INR 1.09 (0.9-1.15); Partial Thromboplastin Time 38.8 SEC (24.5-34.5); Prothrombin Time 11.5 sec (9.3-11.8)
[2023-11-01] MEDS ORDERED: ALBU108A5 INH (10:43)
[2023-11-01] MEDS ORDERED: FINA5TAB4 PO (10:44)
[2023-11-01] MEDS: MORPHINE SULFATE INJ 2 MG/ml SYRG IV PRN (12:58)
[2023-11-01] MEDS ORDERED: FUROSEMIDE 40 MG/4 ML VIAL IV SCH (18:00)
[2023-11-01 19:03] LABS: INR 1.03 (0.9-1.15); Partial Thromboplastin Time 59.2 SEC (24.5-34.5); Prothrombin Time 10.9 sec (9.3-11.8)
[2023-11-02] VITALS (11 sets, daily range): BP systolic 122–134; BP diastolic 72–91; PULSE 54–105; RESP 16–20; TEMP 97.4–98.8; O2SAT 93–100
[2023-11-02] MEDS: CARVEDILOL 3.125 MG TAB PO SCH (00:38)
[2023-11-02 01:02] LABS: INR 1.04 (0.9-1.15)
[2023-11-02 01:08] LABS: Partial Thromboplastin Time 79.9 SEC (24.5-34.5)
[2023-11-02] MEDS: HEPARIN DRIP/D5W 100UNITS/ML 250 ML IV SCH (01:23)
[2023-11-02] MEDS: HYDROcodone-ACET 5/325MG TAB PO PRN (08:35)
[2023-11-02] MEDS: LOSARTAN POTASSIUM 50 MG TAB PO SCH (08:36)
[2023-11-02 09:05] LABS: Basophils # (auto) 0.1 10 ^3/uL (0-0.2); Basophils % (auto) 0.7 % (0.0-2.0); Eosinophils # (auto) 0.2 10 ^3/uL (0-0.8); Eosinophils % (auto) 1.9 % (0.0-7.0); Hematocrit 50.6 % (41.0-53.0); Hemoglobin 16.5 g/dL (13.5-17.5); Lymphocytes # (auto) 1.3 10 ^3/uL (0.4-5.4); Lymphocytes % (auto) 11.9 % (10.0-50.0); Mean Corpuscular Hemoglobin 27.9 pg (28.0-32.0); Mean Corpuscular Hgb Conc. 32.6 g/dL (32.0-36.0); Mean Corpuscular Volume 85.6 fL (80.0-100.0); Monocytes # (auto) 1.1 10 ^3/uL (0-1.3); Monocytes % (auto) 9.7 % (0.0-12.0); Neutrophils # (auto) 8.6 10 ^3/uL (1.6-8.6); Neutrophils % (auto) 75.8 % (37.0-80.0); Nucleated Red Blood Cells % 0.1 %; Red Blood Cells 5.91 10^6/uL (4.5-5.90); Red Cell Distribution Width 16.6 % (11.8-14.3); White Blood Cell 11.3 10^3/uL (4.4-10.8)
[2023-11-02 09:20] LABS: INR 1.03 (0.9-1.15); Partial Thromboplastin Time 63.3 SEC (24.5-34.5); Prothrombin Time 10.9 sec (9.3-11.8)
[2023-11-02 14:41] LABS: INR 1.03 (0.9-1.15); Partial Thromboplastin Time 37.6 SEC (24.5-34.5); Prothrombin Time 10.9 sec (9.3-11.8)
[2023-11-02] MEDS ORDERED: HEPARIN DRIP/D5W 100UNITS/ML 250 ML IV SCH (16:15)
== END 2023-11-02 17:18 | disposition home or self-care (01) | DRG 291 ==
LOC: EDBD 14:09 → ER 14:09 → TELE 16:46 → ER 16:46 → TELE-WESTW 11-01 22:14
PROVIDERS: ADMIT Internal Medicine; ATTEND Internal Medicine
PROC: 5A09357 Assistance with Respiratory Ventilation, Less than 24 Consecutive Hours, Continuous Positive Airway Pressure (ICD-10-PCS; principal; 2023-10-31)
PROC: 5A09357 Assistance with Respiratory Ventilation, Less than 24 Consecutive Hours, Continuous Positive Airway Pressure (ICD-10-PCS; 2023-11-01)
DX: I11.0 Hypertensive heart disease with heart failure (principal); I50.23 Acute on chronic systolic (congestive) heart failure; J96.21 Acute and chronic respiratory failure with hypoxia; I16.0 Hypertensive urgency; E11.9 Type 2 diabetes mellitus without complications; I42.0 Dilated cardiomyopathy; J44.9 Chronic obstructive pulmonary disease, unspecified; F15.10 Other stimulant abuse, uncomplicated; Z88.0 Allergy status to penicillin; I25.2 Old myocardial infarction; Z79.82 Long term (current) use of aspirin; Z79.899 Other long term (current) drug therapy; Z99.81 Dependence on supplemental oxygen; Z91.199 Patient's noncompliance with other medical treatment and regimen due to unspecified reason; Z71.51 Drug abuse counseling and surveillance of drug abuser
CPT/HCPCS: 36415; 36600; 71045; 80048; 80053; 81001; 82805; 83605; 83735; 83880; 84484; 85025; 85379; 85610; 85730; 86706; 87040; 87081; 93005; 94640; 94660; 96365; 96375; 99291; G0378

== ENCOUNTER 2023-12-14 01:31 | Inpatient (IN) | payer OTHER ==
[2023-12-14] VITALS (11 sets, daily range): BP systolic 77–180; BP diastolic 10–105; PULSE 62–141; RESP 20–36; TEMP 100.6; O2SAT 90–100
[~2023-12-14] VITALS: Ht 162.6 cm; Wt 98.1 kg
[~2023-12-14 01:31] MED LIST changes: +ALBU108A5 INH; -ALBUAER3 INH; +FINA5TAB4 PO
[2023-12-14] MEDS: ALBUTEROL SULF 2.5 MG/0.5ML(0.5%) NEB SOLN NEB ONE (02:15)
[2023-12-14] MEDS: IPRATROPIUM BROM 0.5 MG/2.5ML INH SOL NEB ONE (02:15)
[2023-12-14 02:22] LABS: Basophils # (auto) 0 10 ^3/uL (0-0.2); Basophils % (auto) 0.3 % (0.0-2.0); Eosinophils # (auto) 0.1 10 ^3/uL (0-0.8); Eosinophils % (auto) 0.7 % (0.0-7.0); Hematocrit 43.3 % (41.0-53.0); Hemoglobin 14.2 g/dL (13.5-17.5); Lymphocytes # (auto) 1.2 10 ^3/uL (0.4-5.4); Lymphocytes % (auto) 8.6 % (10.0-50.0); Mean Corpuscular Hemoglobin 28.8 pg (28.0-32.0); Mean Corpuscular Hgb Conc. 32.8 g/dL (32.0-36.0); Mean Corpuscular Volume 87.8 fL (80.0-100.0); Monocytes # (auto) 1.2 10 ^3/uL (0-1.3); Monocytes % (auto) 8.3 % (0.0-12.0); Neutrophils # (auto) 11.5 10 ^3/uL (1.6-8.6); Neutrophils % (auto) 82.1 % (37.0-80.0); Red Blood Cells 4.94 10^6/uL (4.5-5.90); Red Cell Distribution Width 17.5 % (11.8-14.3)
[2023-12-14 02:28] LABS: Alanine Aminotransferase 69 U/L (7-40); Albumin 4.3 g/dL (3.2-4.8); Alkaline Phosphatase 217 U/L (46-116); Anion Gap 7 (5-15); Aspartate Aminotransferase 79 U/L (13-40); BUN/Creatinine Ratio 39.8 (10.0-20.0); Blood Urea Nitrogen 37 mg/dL (9-23); Calcium 9.4 mg/dL (8.7-10.4); Carbon Dioxide 24 mmol/L (20-30); Chloride 108 mmol/L (98-107); Glucose 121 mg/dL (74-106); Sodium 139 mmol/L (136-145)
[2023-12-14 02:29] LABS: Bilirubin, Total 0.5 mg/dL (0.2-1.0); Total Protein 7.1 g/dL (5.7-8.2)
[2023-12-14] MEDS: LORazepam 2MG/ML-1ML VIAL IV ONE (04:18)
[2023-12-14 04:29] LABS: Urine Bacteria MANY /hpf (None Seen); Urine Blood Negative /uL (Negative); Urine Clarity Clear (Clear); Urine Color Yellow (Yellow); Urine Mucus FEW (None Seen); Urine Protein, UAD 1+ (Negative); Urine Specific Gravity 1.025 (1.001-1.035); Urine Urobilinogen Normal (Negative); Urine WBC 4 /hpf (0 - 3); Urine pH 5.5 (5.0-9.0)
[2023-12-14] MEDS: diphenhdrAMINE HCL 50 MG/1 ML VL ONE (04:37)
[2023-12-14] MEDS: HALOPERIDOL LACTATE 5 MG/ML INJ VIAL ONE (04:37)
[2023-12-14] MEDS: LORazepam MDV 2MG/ML 10 ML IV ONE (04:38)
[2023-12-14] MEDS: HALOPERIDOL LACTATE 5 MG/ML INJ VIAL IM ONE (04:45)
[2023-12-14] MEDS: diphenhdrAMINE HCL 50 MG/1 ML VL IM ONE (04:45)
[2023-12-14 04:48] LABS: Amphetamine Screen, Urine Pos (NEGATIVE); Barbiturate Scree,Urine Neg (NEGATIVE); Benzodiazephine Screen, Urine Neg (NEGATIVE); Cocaine Screen, Urine Neg (NEGATIVE); Opiate Scree,Urine Neg (NEGATIVE); Phencyclidine Screen, Urine Neg (NEGATIVE)
[2023-12-14] MEDS: PROPOFOL 10 MG/ML 20 ML IV ONE (04:48)
[2023-12-14] MEDS: PROPOFOL 100 ML IV ONE (04:48)
[2023-12-14 04:49] LABS: Cannabinoid Screen, Urine Pos (NEGATIVE)
[2023-12-14] MEDS: AMIODARONE HCL (50 MG/ ML) 3 ML VIAL IV ONE (04:49)
[2023-12-14] MEDS: SUCCINYLCHOLINE CHLORIDE 20 MG/ML 10ML VIAL IV ONE ×2 (04:49)
[2023-12-14] MEDS: ROCURONIUM 10MG/ML 10ML VIAL IV ONE ×3 (04:56)
[2023-12-14] MEDS: AMIODARONE BOLUS KIT 100 ML IV ONE (05:00)
[2023-12-14] MEDS ORDERED: HEPARIN SODIUM (PORCINE) 5000 UNITS/ML 1ML VIAL IV ONE (05:30)
[2023-12-14] MEDS: AMIODARONE 450mg/250ml AE 250 ML IV SCH ×2 (05:45→11:32)
[2023-12-14] MEDS: ASPirin-EC 325mg tab PO ONE (06:00)
[2023-12-14] MEDS: IPRATROPIUM BROM 0.5 MG/2.5ML INH SOL NEB SCH (06:00)
[2023-12-14] MEDS: FUROSEMIDE 40 MG/4 ML VIAL IV ONE (06:00)
[2023-12-14] MEDS: ENOXAPARIN SOD 80 MG/0.8ML SYRINGE SC ONE (06:00)
[2023-12-14 06:17] LABS: Base Excess -9.5 mmol/L (-2.0-2.0)
[2023-12-14] MEDS: fentaNYL Drip 2500mCg/250mlNS 250 ML IV ONE (06:24)
[2023-12-14] MEDS: fentaNYL Drip 2500mCg/250mlNS 250 ML IV SCH (06:58)
[2023-12-14 07:00] LABS: Basophils # (auto) 0.1 10 ^3/uL (0-0.2); Basophils % (auto) 0.7 % (0.0-2.0); Eosinophils # (auto) 0.1 10 ^3/uL (0-0.8); Eosinophils % (auto) 0.6 % (0.0-7.0); Hematocrit 46.8 % (41.0-53.0); Hemoglobin 15.3 g/dL (13.5-17.5); Lymphocytes # (auto) 1.5 10 ^3/uL (0.4-5.4); Mean Corpuscular Hgb Conc. 32.8 g/dL (32.0-36.0); Mean Corpuscular Volume 88.4 fL (80.0-100.0); Monocytes # (auto) 1.2 10 ^3/uL (0-1.3); Monocytes % (auto) 7.2 % (0.0-12.0); Neutrophils # (auto) 13.4 10 ^3/uL (1.6-8.6); Neutrophils % (auto) 82.5 % (37.0-80.0); Nucleated Red Blood Cells % 0.2 %; Red Blood Cells 5.29 10^6/uL (4.5-5.90); Red Cell Distribution Width 17.5 % (11.8-14.3); White Blood Cell 16.2 10^3/uL (4.4-10.8)
[2023-12-14 07:15] LABS: INR 1.07 (0.9-1.15); Partial Thromboplastin Time 24.5 SEC (24.5-34.5); Prothrombin Time 11.3 sec (9.3-11.8)
[2023-12-14 07:31] LABS: Lactic Acid w/Reflex 3.9 mmol/L (0.4-2.0)
[2023-12-14] MEDS: SODIUM CHLORIDE 0.9% 1,000 ML IV ONE (08:41)
[2023-12-14] MEDS: SODIUM CHLORIDE 0.9% 1,000 ML IV SCH (08:41)
[2023-12-14] MEDS: HEPARIN DRIP/D5W 100UNITS/ML 250 ML IV SCH ×2 (08:59→23:01)
[2023-12-14 09:56] LABS: Base Excess -6.6 mmol/L (-2.0-2.0)
[2023-12-14] MEDS: PIPERACILLIN-TAZOB 3.375GM 100 ML IV SCH (10:37)
[2023-12-14] MEDS: PANTOPRAZOLE 40 MG/10 ML VIAL INJ IV SCH (10:38)
[2023-12-14] MEDS: InsuLIN REG 1unit/0.01ml Soln (100units/ml) SC SCH (12:00)
[2023-12-14] MEDS: ACCU-CHEK COMFORT CURVE STRIP VI SCH (12:16)
[2023-12-14] MEDS: ACETAMINOPHEN 650 mg PER 20.3 mL UD GT PRN (12:20)
[2023-12-14] MEDS ORDERED: LABETALOL HCL 5 MG/ML ML 20ML VIAL IV PRN (14:00)
[2023-12-14] MEDS: MIDAZOLAM DRIP 50 mg/50mL 50 ML IV SCH (14:16)
[2023-12-14] MEDS: NOREPINEPHRINE 8 MG/250ML KIT 250 ML IV ONE (14:42)
[2023-12-14] MEDS: NOREPINEPHRINE 8 MG/250ML KIT 250 ML IV SCH (14:50)
[2023-12-14] MEDS: PHENYLEPHRINE IV 250 ML IV SCH (16:30)
[2023-12-14] MEDS: PHENYLEPHRINE IV 250 ML IV ONE (16:30)
[2023-12-14] MEDS: SODIUM CHLORIDE 0.9% 250 ML IV SCH (17:30)
[2023-12-14] MEDS: VASOPRESSIN 20 UNITS in SODIUM CHL 0.9% 99 ML IV SCH (17:33)
[2023-12-14] MEDS: DOPamine 1600MCG/ML D5W 250 ML IV SCH (17:45)
[2023-12-14] MEDS: EPINEPHrine HCL 250 ML IV ONE (17:48)
[2023-12-14 17:49] LABS: Base Excess -19.8 mmol/L (-2.0-2.0)
[2023-12-14] MEDS: EPINEPHrine HCL 250 ML IV SCH (18:08)
[2023-12-14 18:12] LABS: INR 1.59 (0.9-1.15); Prothrombin Time 16.3 sec (9.3-11.8)
[2023-12-14] MEDS: SODIUM BICARB 8.4% 50Meq/50ml SYR Vial IV ONE (18:34)
[2023-12-14] MEDS: DEXTROSE (50%) 50ML SYRG IV PRN (18:50)
[2023-12-14] MEDS: SODIUM BICARB 50mEq/50ml Vial 150 ML in D5W 5% 1,000 ML IV SCH (20:12)
[2023-12-14] MEDS: HYDROCORTISONE SOD SUCC 100 MG/2ML INJ VIAL IV SCH (20:25)
[2023-12-14 22:15] LABS: INR 1.99 (0.9-1.15); Partial Thromboplastin Time 35.9 SEC (24.5-34.5)
[2023-12-14 23:02] LABS: Base Excess -15.9 mmol/L (-2.0-2.0)
[2023-12-15] VITALS (70 sets, daily range): BP systolic 71–169; BP diastolic 55–107; PULSE 84–101; RESP 13–35; TEMP 97.9–99.7; O2SAT 66–100
[2023-12-15] MEDS: LORazepam 2MG/ML-1ML VIAL IV ONE (01:03)
[2023-12-15] MEDS ORDERED: VANCOMYCIN PER PHARMACY 0 MG IV SCH (02:00)
[2023-12-15] MEDS: VASOPRESSIN 20 UNIT/ML ONE (02:04)
[2023-12-15] MEDS: VANCOMYCIN 1GM/200ML 200 ML IV ONE (03:02)
[2023-12-15 05:43] LABS: Hematocrit 43.2 % (41.0-53.0); Hemoglobin 13.7 g/dL (13.5-17.5); Mean Corpuscular Hemoglobin 28.8 pg (28.0-32.0); Mean Corpuscular Hgb Conc. 31.7 g/dL (32.0-36.0); Mean Corpuscular Volume 90.8 fL (80.0-100.0); Red Blood Cells 4.75 10^6/uL (4.5-5.90); White Blood Cell 26.4 10^3/uL (4.4-10.8)
[2023-12-15 05:46] LABS: Basophils % (manual) 0 (0.0-2.0); Blast Cells 0; Eosinophils % (manual) 0 (0-7); Metamyelocytes % 0; Myelocytes % 0; Promyelocytes % 0; Reactive Lymphocytes 0
[2023-12-15 05:56] LABS: INR 2.06 (0.9-1.15); Partial Thromboplastin Time 33.8 SEC (24.5-34.5); Prothrombin Time 20.7 sec (9.3-11.8)
[2023-12-15] MEDS: HEPARIN DRIP/D5W 100UNITS/ML 250 ML IV SCH ×2 (06:22→13:45)
[2023-12-15] MEDS: HEPARIN SODIUM (PORCINE) 5000 UNITS/ML 1ML VIAL IV ONE (06:44)
[2023-12-15 07:14] LABS: Anion Gap 14 (5-15)
[2023-12-15 07:20] LABS: BUN/Creatinine Ratio 20.3 (10.0-20.0)
[2023-12-15 07:26] LABS: Alkaline Phosphatase 261 U/L (46-116); Blood Urea Nitrogen 67 mg/dL (9-23); Calcium 6.1 mg/dL (8.7-10.4); Carbon Dioxide 17 mmol/L (20-30); Glucose 348 mg/dL (74-106)
[2023-12-15 07:27] LABS: Bilirubin, Total 1.5 mg/dL (0.2-1.0); HDL Cholesterol 22 mg/dL (40-59); Total Protein 4.9 g/dL (5.7-8.2)
[2023-12-15 07:28] LABS: Chloride 105 mmol/L (98-107); Cholesterol 71 mg/dL (< 200); LDL Cholesterol 46 mg/dL (< 100); Sodium 136 mmol/L (136-145); Triglycerides 84 mg/dL (< 150)
[2023-12-15 07:31] LABS: Potassium 6.7 mmol/L (3.5-5.1)
[2023-12-15] MEDS ORDERED: ALBUTEROL SULF 2.5 MG/0.5ML(0.5%) NEB SOLN NEB ONE (07:45)
[2023-12-15 07:46] LABS: Base Excess -16.2 mmol/L (-2.0-2.0)
[2023-12-15] MEDS: SODIUM ZIRCONIUM CYCL 10 GM PAK PO ONE (07:58)
[2023-12-15] MEDS: CALCIUM GLUC 1,000mg/50ml-NS 50 ML IV ONE (07:58)
[2023-12-15] MEDS: InsuLIN REG 1unit/0.01ml Soln (100units/ml) IV ONE ×3 (07:59→22:16)
[2023-12-15 08:02] LABS: Band Neutrophils % (manual) 3; Lymphocytes % (manual) 8 (10.0-50.0); Monocytes % (manual) 11 (0-12); Platelet Estimate Adequate
[2023-12-15 08:07] LABS: Aspartate Aminotransferase > 6000 U/L (13-40)
[2023-12-15 08:08] LABS: Alanine Aminotransferase > 6000 U/L (7-40)
[2023-12-15] MEDS: SODIUM BICARB 8.4% 50Meq/50ml SYR Vial IV ONE ×2 (08:13→14:36)
[2023-12-15] MEDS: ALBUTEROL SULF 2.5 MG/0.5ML(0.5%) NEB SOLN NEB ONE ×2 (08:46→22:11)
[2023-12-15] MEDS: DEXTROSE (50%) 50ML SYRG IV ONE ×3 (08:53→22:18)
[2023-12-15] MEDS: DEXTROSE 50% SYRINGE 50 ML IV ONE (08:54)
[2023-12-15] MEDS: EPINEPHrine HCL 250 ML IV ONE (09:10)
[2023-12-15] MEDS: PHENYLEPHRINE IV 250 ML IV ONE (09:10)
[2023-12-15] MEDS: NOREPINEPHRINE 8 MG/250ML KIT 250 ML IV ONE (09:11)
[2023-12-15] MEDS: EPINEPHrine HCL INJECTION 16 MG in D5W 5% 234 ML IV SCH (10:39)
[2023-12-15] MEDS: NOREPINEPHRINE BITARTRATE 32 MG in SODIUM CHL 0.9% 218 ML IV SCH (10:40)
[2023-12-15] MEDS: PHENYLEPHRINE INJ 80 MG in SODIUM CHL 0.9% 242 ML IV SCH (10:40)
[2023-12-15 13:09] LABS: INR 2.29 (0.9-1.15); Partial Thromboplastin Time 42.7 SEC (24.5-34.5); Prothrombin Time 22.8 sec (9.3-11.8)
[2023-12-15 13:52] LABS: Base Excess -16.7 mmol/L (-2.0-2.0)
[2023-12-15 16:30] LABS: Urine Bacteria MOD /hpf (None Seen); Urine Blood 3+ /uL (Negative); Urine Clarity Turbid (Clear); Urine Color Yellow (Yellow); Urine Protein, UAD 3+ (Negative); Urine Specific Gravity 1.015 (1.001-1.035); Urine Urobilinogen Normal (Negative); Urine WBC 26 /hpf (0 - 3)
[2023-12-15 16:39] LABS: Creatinine, Urine 39.53 mg/dL (30.0-125.0)
[2023-12-15 16:42] LABS: Protein, Urine 684.8 mg/dL (0.0-11.9)
[2023-12-15 20:03] LABS: Base Excess -8.6 mmol/L (-2.0-2.0)
[2023-12-15 20:21] LABS: Chloride 99 mmol/L (98-107); INR 2.46 (0.9-1.15); Partial Thromboplastin Time 42.5 SEC (24.5-34.5); Prothrombin Time 24.4 sec (9.3-11.8); Sodium 138 mmol/L (136-145)
[2023-12-15 20:22] LABS: Anion Gap 19 (5-15); Carbon Dioxide 20 mmol/L (20-30)
[2023-12-15 20:27] LABS: BUN/Creatinine Ratio 18.7 (10.0-20.0); Blood Urea Nitrogen 75 mg/dL (9-23); Glucose 289 mg/dL (74-106)
[2023-12-15 21:23] LABS: Calcium 5.3 mg/dL (8.7-10.4); Potassium 6.4 mmol/L (3.5-5.1)
[2023-12-15] MEDS: SODIUM BICARB 8.4% 50Meq/50ml SYR INJ IV ONE (22:17)
[2023-12-15] MEDS: CALCIUM CHL 100MG/ML 500 MG in D5W 5% 100 ML IV ONE (22:18)
[2023-12-15] MEDS: FUROSEMIDE 20 MG/2 ML VIAL IV ONE (22:29)
[2023-12-16] VITALS (108 sets, daily range): BP systolic 61–285; BP diastolic 46–279; PULSE 87–102; RESP 19–33; TEMP 97.3–100.4; O2SAT 37–100
[2023-12-16] MEDS: HEPARIN DRIP/D5W 100UNITS/ML 250 ML IV SCH (01:19)
[2023-12-16 03:12] LABS: INR 2.68 (0.9-1.15); Partial Thromboplastin Time 49.1 SEC (24.5-34.5); Prothrombin Time 26.4 sec (9.3-11.8)
[2023-12-16 04:11] LABS: Hemoglobin 14.2 g/dL (13.5-17.5); Red Blood Cells 5.03 10^6/uL (4.5-5.90)
[2023-12-16 04:13] LABS: Hematocrit 43.9 % (41.0-53.0); Mean Corpuscular Hemoglobin 28.2 pg (28.0-32.0); Mean Corpuscular Hgb Conc. 32.3 g/dL (32.0-36.0); Mean Corpuscular Volume 87.3 fL (80.0-100.0); Red Cell Distribution Width 17.1 % (11.8-14.3); White Blood Cell 20.7 10^3/uL (4.4-10.8)
[2023-12-16 04:18] LABS: Basophils % (manual) 0 (0.0-2.0); Blast Cells 0; Eosinophils % (manual) 0 (0-7); Promyelocytes % 0
[2023-12-16 04:22] LABS: Albumin 2.6 g/dL (3.2-4.8); Alkaline Phosphatase 626 U/L (46-116); Anion Gap 16 (5-15); BUN/Creatinine Ratio 19.3 (10.0-20.0); Carbon Dioxide 21 mmol/L (20-30); Chloride 99 mmol/L (98-107); Glucose 213 mg/dL (74-106); Magnesium 1.8 mg/dL (1.6-2.6); Sodium 136 mmol/L (136-145)
[2023-12-16 04:23] LABS: Bilirubin, Direct 2.2 mg/dL (<0.3); Total Protein 4.4 g/dL (5.7-8.2)
[2023-12-16 04:32] LABS: Blood Urea Nitrogen 80 mg/dL (9-23); Calcium 5.3 mg/dL (8.7-10.4); Potassium 5.8 mmol/L (3.5-5.1)
[2023-12-16 04:34] LABS: Aspartate Aminotransferase > 6000 U/L (13-40)
[2023-12-16 04:35] LABS: Alanine Aminotransferase > 6000 U/L (7-40)
[2023-12-16 04:37] LABS: Bilirubin, Total 3.2 mg/dL (0.2-1.0)
[2023-12-16 04:55] LABS: Anisocytosis Slight; Band Neutrophils % (manual) 28; Large Platelets FEW; Lymphocytes % (manual) 4 (10.0-50.0); Metamyelocytes % 1; Monocytes % (manual) 2 (0-12); Myelocytes % 2; Platelet Estimate Decreased; Reactive Lymphocytes 1; Smudge Cells 3 /100 WBC
[2023-12-16 04:56] LABS: Giant Platelets Few
[2023-12-16] MEDS: CALCIUM GLUC 1,000mg/50ml-NS 50 ML IV ONE (05:16)
[2023-12-16] MEDS: SODIUM BICARB 8.4% 50Meq/50ml SYR INJ IV ONE (05:21)
[2023-12-16] MEDS: DEXTROSE (50%) 50ML SYRG IV ONE ×4 (05:21→21:50)
[2023-12-16] MEDS: InsuLIN REG 1unit/0.01ml Soln (100units/ml) IV ONE ×2 (05:23→21:00)
[2023-12-16] MEDS: ALBUTEROL SULF 2.5 MG/0.5ML(0.5%) NEB SOLN NEB ONE ×2 (06:20→21:09)
[2023-12-16 10:20] LABS: INR 2.8 (0.9-1.15); Partial Thromboplastin Time 48.8 SEC (24.5-34.5); Prothrombin Time 27.5 sec (9.3-11.8)
[2023-12-16] MEDS: phytonadione 10 MG in SODIUM CHL 0.9% 50 ML IV ONE (10:57)
[2023-12-16] MEDS: VANCOMYCIN 1GM/200ML 200 ML IV ONE (10:59)
[2023-12-16 11:04] LABS: Chloride 98 mmol/L (98-107); Sodium 136 mmol/L (136-145)
[2023-12-16 11:05] LABS: Anion Gap 16 (5-15); Carbon Dioxide 22 mmol/L (20-30)
[2023-12-16 11:10] LABS: BUN/Creatinine Ratio 18.2 (10.0-20.0); Blood Urea Nitrogen 77 mg/dL (9-23); Glucose 185 mg/dL (74-106)
[2023-12-16 11:14] LABS: Calcium 4.9 mg/dL (8.7-10.4); Potassium 5.9 mmol/L (3.5-5.1)
[2023-12-16] MEDS: FUROSEMIDE 40 MG/4 ML VIAL IV ONE (11:45)
[2023-12-16] MEDS ORDERED: CEFEPIME 2GM/50ML NS 50 ML IV SCH (14:00)
[2023-12-16] MEDS: LACTULOSE 20Gm/30ML SOLN PO ONE (17:52)
[2023-12-16] MEDS: CALCIUM GLUC 1,000mg/50ml-NS 50 ML IV SCH (18:07)
[2023-12-16] MEDS: CEFEPIME 2GM/50ML NS 50 ML IV SCH (18:08)
[2023-12-16 19:40] LABS: Chloride 100 mmol/L (98-107); Sodium 138 mmol/L (136-145)
[2023-12-16 19:41] LABS: Anion Gap 14 (5-15); Carbon Dioxide 24 mmol/L (20-30)
[2023-12-16 19:42] LABS: Calcium 6.1 mg/dL (8.7-10.4)
[2023-12-16 19:46] LABS: BUN/Creatinine Ratio 17.3 (10.0-20.0)
[2023-12-16 20:03] LABS: Blood Urea Nitrogen 57 mg/dL (9-23)
[2023-12-16 20:05] LABS: Glucose 35 mg/dL (74-106); Potassium 5.6 mmol/L (3.5-5.1)
[2023-12-16] MEDS: SODIUM BICARB 8.4% 50Meq/50ml SYR Vial IV ONE ×2 (21:37→21:51)
[2023-12-16] MEDS: SODIUM BICARB 50mEq/50ml Vial 50 ML in D5W 5% 1,000 ML IV SCH (21:52)
[2023-12-16 23:17] LABS: Base Excess -5.3 mmol/L (-2.0-2.0)
[2023-12-17] VITALS (109 sets, daily range): BP systolic 56–176; BP diastolic 47–96; PULSE 88–99; RESP 11–36; TEMP 97.5–99.7; O2SAT 80–98
[2023-12-17] MEDS: DOPamine 1600MCG/ML D5W 250 ML IV SCH (00:04)
[2023-12-17] MEDS: DOPamine 1600MCG/ML D5W 250 ML IV ONE (00:13)
[2023-12-17 04:16] LABS: INR 2.77 (0.9-1.15); Prothrombin Time 27.2 sec (9.3-11.8)
[2023-12-17 04:17] LABS: Hemoglobin 14.9 g/dL (13.5-17.5)
[2023-12-17 04:19] LABS: Mean Corpuscular Hemoglobin 28.9 pg (28.0-32.0); Mean Corpuscular Hgb Conc. 32.5 g/dL (32.0-36.0); Mean Corpuscular Volume 88.9 fL (80.0-100.0); Red Blood Cells 5.18 10^6/uL (4.5-5.90); Red Cell Distribution Width 17.4 % (11.8-14.3); White Blood Cell 27.4 10^3/uL (4.4-10.8)
[2023-12-17 04:23] LABS: Albumin 2.3 g/dL (3.2-4.8); Alkaline Phosphatase 921 U/L (46-116); Anion Gap 19 (5-15); BUN/Creatinine Ratio 15.2 (10.0-20.0); Bilirubin, Total 6.2 mg/dL (0.2-1.0); Blood Urea Nitrogen 62 mg/dL (9-23); Carbon Dioxide 25 mmol/L (20-30); Chloride 93 mmol/L (98-107); Sodium 137 mmol/L (136-145); Total Protein 4.2 g/dL (5.7-8.2)
[2023-12-17 04:35] LABS: Alanine Aminotransferase > 6000 U/L (7-40); Aspartate Aminotransferase > 6000 U/L (13-40); Basophils % (manual) 0 (0.0-2.0); Blast Cells 0; Eosinophils % (manual) 0 (0-7); Glucose 183 mg/dL (74-106); Metamyelocytes % 0; Myelocytes % 0; Promyelocytes % 0; Reactive Lymphocytes 0
[2023-12-17 04:38] LABS: Potassium 5.7 mmol/L (3.5-5.1)
[2023-12-17 04:57] LABS: Calcium 5.4 mg/dL (8.7-10.4)
[2023-12-17] MEDS: InsuLIN REG 1unit/0.01ml Soln (100units/ml) IV ONE (05:15)
[2023-12-17 05:36] LABS: Band Neutrophils % (manual) 21; Lymphocytes % (manual) 5 (10.0-50.0); Monocytes % (manual) 4 (0-12)
[2023-12-17 05:37] LABS: Anisocytosis Slight; Platelet Estimate Markedly Decreased; Polychromasia Moderate
[2023-12-17] MEDS: PHENYLEPHRINE IV 250 ML IV ONE (05:50)
[2023-12-17] MEDS: PHENYLEPHRINE HCL 10 MG/ML VL ONE (05:50)
[2023-12-17] MEDS: DEXTROSE (50%) 50ML SYRG IV ONE (06:17)
[2023-12-17] MEDS: SODIUM BICARB 8.4% 50Meq/50ml SYR Vial IV ONE (06:18)
[2023-12-17] MEDS: CALCIUM GLUC 1,000mg/50ml-NS 50 ML IV ONE (06:18)
[2023-12-17] MEDS: ALBUTEROL SULF 2.5 MG/0.5ML(0.5%) NEB SOLN NEB ONE ×2 (06:24→19:22)
[2023-12-17] MEDS: SODIUM CHL 0.9% 1000 ML BAG XX ONE (07:00)
[2023-12-17] MEDS: SODIUM BICARB 50mEq/50ml Vial 50 ML in D5W 5% 1,000 ML IV SCH (07:15)
[2023-12-17] MEDS: phytonadione 10 MG in SODIUM CHL 0.9% 50 ML IV ONE (10:37)
[2023-12-17] MEDS: MEROPENEM 500MG IVPB 50 ML IV SCH (14:00)
[2023-12-17] MEDS: ALBUMIN 25% 100 ML IV ONE ×3 (14:30→15:30)
[2023-12-17 14:40] LABS: Base Excess -4.8 mmol/L (-2.0-2.0)
[2023-12-17] MEDS ORDERED: CLINIMIX PER PHARMACY 0 ML IV SCH (15:15)
[2023-12-17] MEDS ORDERED: DEXTROSE (50%) 50ML SYRG IV SCH (16:00)
[2023-12-17] MEDS: InsuLIN REG 1unit/0.01ml Soln (100units/ml) SC SCH (18:00)
[2023-12-17] MEDS: ACCU-CHEK COMFORT CURVE STRIP VI SCH (18:08)
[2023-12-17] MEDS: ALBUTEROL SULF 2.5 MG/0.5ML(0.5%) NEB SOLN ONE (19:22)
[2023-12-17 20:05] LABS: Lymphocytes # (auto) 1.1 10 ^3/uL (0.4-5.4); Monocytes # (auto) 0.7 10 ^3/uL (0-1.3); Red Cell Distribution Width 17.2 % (11.8-14.3)
[2023-12-17 20:07] LABS: Basophils # (auto) 0.1 10 ^3/uL (0-0.2); Basophils % (auto) 0.3 % (0.0-2.0); Eosinophils # (auto) 0.2 10 ^3/uL (0-0.8); Hematocrit 37.6 % (41.0-53.0); Hemoglobin 12.1 g/dL (13.5-17.5); Lymphocytes % (auto) 4.3 % (10.0-50.0); Mean Corpuscular Hemoglobin 28.3 pg (28.0-32.0); Mean Corpuscular Hgb Conc. 32.3 g/dL (32.0-36.0); Mean Corpuscular Volume 87.6 fL (80.0-100.0); Monocytes % (auto) 2.9 % (0.0-12.0); Neutrophils # (auto) 22.4 10 ^3/uL (1.6-8.6); Neutrophils % (auto) 91.5 % (37.0-80.0); Nucleated Red Blood Cells % 16.1 %; Red Blood Cells 4.29 10^6/uL (4.5-5.90); White Blood Cell 24.5 10^3/uL (4.4-10.8)
[2023-12-17 20:21] LABS: Albumin 3.3 g/dL (3.2-4.8); Alkaline Phosphatase 699 U/L (46-116); Anion Gap 13 (5-15); Bilirubin, Total 9.6 mg/dL (0.2-1.0); Carbon Dioxide 29 mmol/L (20-30); Chloride 95 mmol/L (98-107); Glucose 159 mg/dL (74-106); Phosphorus 8.4 mg/dL (2.4-5.1); Sodium 137 mmol/L (136-145); Total Protein 4.7 g/dL (5.7-8.2)
[2023-12-17 20:29] LABS: Blood Urea Nitrogen 36 mg/dL (9-23)
[2023-12-17 20:33] LABS: Calcium 5.7 mg/dL (8.7-10.4)
[2023-12-17 20:41] LABS: Base Excess -0.9 mmol/L (-2.0-2.0)
[2023-12-17] MEDS: AMINO ACID INFUSION IN D10W 1,000 ML IV SCH (20:42)
[2023-12-17] MEDS ORDERED: EPOETIN ALFA-EPBX 10,000 UNIT/1ML VIAL SC ONE (21:00)
[2023-12-17 21:37] LABS: Alanine Aminotransferase 5811 U/L (7-40)
[2023-12-17 21:38] LABS: Aspartate Aminotransferase > 6000 U/L (13-40)
[2023-12-17] MEDS: CALCIUM GLUC 1,000mg/50ml-NS 50 ML IV SCH (21:38)
[2023-12-17] MEDS: LACTULOSE 20Gm/30ML SOLN PO SCH (23:39)
[2023-12-18] VITALS (117 sets, daily range): BP systolic 57–181; BP diastolic 44–107; PULSE 78–100; RESP 21–31; TEMP 95.7–99.3; O2SAT 7–97
[2023-12-18 01:13] LABS: Base Excess -1.9 mmol/L (-2.0-2.0)
[2023-12-18 03:57] LABS: Hematocrit 36.4 % (41.0-53.0); Hemoglobin 11.8 g/dL (13.5-17.5); Mean Corpuscular Hemoglobin 28.9 pg (28.0-32.0); Mean Corpuscular Hgb Conc. 32.5 g/dL (32.0-36.0); Mean Corpuscular Volume 88.9 fL (80.0-100.0); Red Blood Cells 4.09 10^6/uL (4.5-5.90); Red Cell Distribution Width 17.5 % (11.8-14.3); White Blood Cell 23.4 10^3/uL (4.4-10.8)
[2023-12-18 04:02] LABS: Albumin 2.8 g/dL (3.2-4.8); Alkaline Phosphatase 653 U/L (46-116); Anion Gap 15 (5-15); Bilirubin, Total 10.5 mg/dL (0.2-1.0); Blood Urea Nitrogen 40 mg/dL (9-23); Carbon Dioxide 28 mmol/L (20-30); Chloride 91 mmol/L (98-107); Glucose 208 mg/dL (74-106); Phosphorus 9.1 mg/dL (2.4-5.1); Potassium 5.3 mmol/L (3.5-5.1); Sodium 134 mmol/L (136-145); Total Protein 4.2 g/dL (5.7-8.2)
[2023-12-18 04:10] LABS: BUN/Creatinine Ratio 11.4 (10.0-20.0)
[2023-12-18 04:19] LABS: INR 2.84 (0.9-1.15); Partial Thromboplastin Time 56.7 SEC (24.5-34.5); Prothrombin Time 27.9 sec (9.3-11.8)
[2023-12-18 04:28] LABS: Basophils % (manual) 0 (0.0-2.0); Blast Cells 0; Eosinophils % (manual) 0 (0-7); Myelocytes % 0; Promyelocytes % 0; Reactive Lymphocytes 0
[2023-12-18 04:30] LABS: Calcium 5.4 mg/dL (8.7-10.4)
[2023-12-18 05:25] LABS: Alanine Aminotransferase 5362 U/L (7-40); Aspartate Aminotransferase > 6000 U/L (13-40)
[2023-12-18 08:19] LABS: Anisocytosis Slight; Band Neutrophils % (manual) 19; Lymphocytes % (manual) 5 (10.0-50.0); Metamyelocytes % 2; Monocytes % (manual) 3 (0-12); Platelet Estimate Markedly Decreased; Polychromasia Slight
[2023-12-18 08:23] LABS: Base Excess -2.2 mmol/L (-2.0-2.0)
[2023-12-18] MEDS: phytonadione 10 MG in SODIUM CHL 0.9% 50 ML IV ONE (08:54)
[2023-12-18] MEDS: diphenhdrAMINE HCL 50 MG/1 ML VL IV SCH (12:00)
[2023-12-18] MEDS: FAMOTIDINE (10MG/ML) 2ML VL IV SCH (14:01)
[2023-12-18] MEDS ORDERED: CALCIUM GLUC 1,000mg/50ml-NS 50 ML IV SCH (17:30)
[2023-12-18] MEDS: VANCOMYCIN 1GM/200ML 200 ML IV ONE (18:42)
[2023-12-18] MEDS: MEROPENEM 500MG IVPB 50 ML IV SCH (18:56)
[2023-12-18 19:12] LABS: Hemoglobin 13.9 g/dL (13.5-17.5)
[2023-12-18 19:14] LABS: Hematocrit 42.4 % (41.0-53.0); Mean Corpuscular Hemoglobin 28.7 pg (28.0-32.0); Mean Corpuscular Hgb Conc. 32.7 g/dL (32.0-36.0); Mean Corpuscular Volume 87.8 fL (80.0-100.0); Red Blood Cells 4.83 10^6/uL (4.5-5.90); Red Cell Distribution Width 17.5 % (11.8-14.3); White Blood Cell 21.3 10^3/uL (4.4-10.8)
[2023-12-18 19:21] LABS: Basophils % (manual) 0 (0.0-2.0); Eosinophils % (manual) 0 (0-7); Myelocytes % 0; Promyelocytes % 0; Reactive Lymphocytes 0
[2023-12-18 19:30] LABS: Albumin 3.1 g/dL (3.2-4.8); Alkaline Phosphatase 819 U/L (46-116); Anion Gap 11 (5-15); Bilirubin, Total 16.3 mg/dL (0.2-1.0); Calcium 6.7 mg/dL (8.7-10.4); Carbon Dioxide 25 mmol/L (20-30); Chloride 98 mmol/L (98-107); Glucose 120 mg/dL (74-106); Magnesium 1.7 mg/dL (1.6-2.6); Phosphorus 4.8 mg/dL (2.4-5.1); Potassium 4.3 mmol/L (3.5-5.1); Sodium 134 mmol/L (136-145); Total Protein 4.6 g/dL (5.7-8.2)
[2023-12-18 19:34] LABS: Blood Urea Nitrogen 26 mg/dL (9-23)
[2023-12-18 19:41] LABS: BUN/Creatinine Ratio 13.2 (10.0-20.0)
[2023-12-18 19:44] LABS: Band Neutrophils % (manual) 13; Blast Cells 4; Lymphocytes % (manual) 4 (10.0-50.0); Metamyelocytes % 4; Monocytes % (manual) 4 (0-12); Platelet Estimate Markedly Decreased
[2023-12-18 20:02] LABS: Alanine Aminotransferase 5054 U/L (7-40); Aspartate Aminotransferase 4177 U/L (13-40)
[2023-12-18] MEDS: CALCIUM GLUC 1,000mg/50ml-NS 50 ML IV SCH (20:17)
[2023-12-18] MEDS: AMIODARONE 450mg/250ml AE 250 ML IV ONE (23:26)
[2023-12-19] VITALS (109 sets, daily range): BP systolic 97–216; BP diastolic 49–99; PULSE 8–97; RESP 7–32; TEMP 97.7–100.2; O2SAT 11–100
[2023-12-19 04:02] LABS: Hematocrit 39.2 % (41.0-53.0); Hemoglobin 12.8 g/dL (13.5-17.5); Mean Corpuscular Hemoglobin 29.1 pg (28.0-32.0); Mean Corpuscular Hgb Conc. 32.6 g/dL (32.0-36.0); Mean Corpuscular Volume 89.2 fL (80.0-100.0); Red Blood Cells 4.39 10^6/uL (4.5-5.90); White Blood Cell 22.4 10^3/uL (4.4-10.8)
[2023-12-19 04:14] LABS: Bilirubin, Total 15.2 mg/dL (0.2-1.0); Phosphorus 7.2 mg/dL (2.4-5.1)
[2023-12-19 04:15] LABS: Basophils % (manual) 0 (0.0-2.0); Blast Cells 0; Eosinophils % (manual) 0 (0-7); Metamyelocytes % 0; Myelocytes % 0; Promyelocytes % 0; Total Protein 4.1 g/dL (5.7-8.2)
[2023-12-19 04:26] LABS: Chloride 96 mmol/L (98-107); Potassium 5.4 mmol/L (3.5-5.1); Sodium 132 mmol/L (136-145)
[2023-12-19 04:28] LABS: Anion Gap 12 (5-15); Carbon Dioxide 24 mmol/L (20-30)
[2023-12-19 04:29] LABS: Calcium 6.2 mg/dL (8.7-10.4)
[2023-12-19 04:33] LABS: Glucose 113 mg/dL (74-106)
[2023-12-19 04:34] LABS: Alkaline Phosphatase 704 U/L (46-116); BUN/Creatinine Ratio 12.4 (10.0-20.0); Blood Urea Nitrogen 33 mg/dL (9-23); Magnesium 1.8 mg/dL (1.6-2.6)
[2023-12-19 04:35] LABS: Albumin 2.7 g/dL (3.2-4.8)
[2023-12-19 04:37] LABS: Alanine Aminotransferase 3585 U/L (7-40); Aspartate Aminotransferase 3047 U/L (13-40); Creatine Kinase IFCC 6051 U/L (46-171)
[2023-12-19 04:49] LABS: INR 2.23 (0.9-1.15); Partial Thromboplastin Time 49.5 SEC (24.5-34.5); Prothrombin Time 22.3 sec (9.3-11.8)
[2023-12-19 05:19] LABS: Anisocytosis Slight; Band Neutrophils % (manual) 21; Large Platelets FEW; Lymphocytes % (manual) 3 (10.0-50.0); Monocytes % (manual) 6 (0-12); Platelet Estimate Decreased; Reactive Lymphocytes 3
[2023-12-19 05:20] LABS: Giant Platelets Few; Ovalocytes FEW
[2023-12-19] MEDS: SODIUM CHL 0.9% 1000 ML BAG XX ONE (06:15)
[2023-12-19] MEDS: ALBUMIN 5% 0 ML IV ONE (06:29)
[2023-12-19] MEDS: ALBUMIN 25% 0 ML IV ONE (06:32)
[2023-12-19] MEDS: ALBUMIN 25% 200 ML IV ONE (06:33)
[2023-12-19 07:50] LABS: Base Excess -4.1 mmol/L (-2.0-2.0)
[2023-12-19] MEDS: ALBUMIN 25% 100 ML IV PRN (07:50)
[2023-12-19] MEDS: phytonadione 10 MG in SODIUM CHL 0.9% 50 ML IV SCH (09:00)
[2023-12-19 09:19] LABS: Hepatitis A Ab IgM Negative
[2023-12-19 09:20] LABS: Hepatitis B Core IgM Negative
[2023-12-19 09:32] LABS: Hepatitis B Surface Antigen Negative (Negative)
[2023-12-19 09:45] LABS: Hepatitis C Antibody Reactive (Negative)
[2023-12-19] MEDS ORDERED: phytonadione 10 MG in SODIUM CHL 0.9% 50 ML IV ONE (10:00)
[2023-12-19] MEDS: CALCIUM GLUC 1,000mg/50ml-NS 50 ML IV SCH (12:30)
[2023-12-19 14:20] LABS: Base Excess -4.2 mmol/L (-2.0-2.0)
[2023-12-19] MEDS: CALCIUM GLUC 1,000mg/50ml-NS 50 ML IV ONE (15:53)
[2023-12-19 16:25] LABS: Base Excess -4.6 mmol/L (-2.0-2.0)
[2023-12-19] MEDS: MEROPENEM 1GM IVPB 50 ML IV SCH (17:09)
[2023-12-19] MEDS ORDERED: TPN PER PHARMACY 0 ML IV SCH (20:00)
[2023-12-19] MEDS: PHYTONADIONE (VIT K)10 MG/ML 1ML VIAL SUBCUT ONE (20:19)
[2023-12-19] MEDS: TPN PER PHARMACY IV NR (20:26)
[2023-12-20] VITALS (78 sets, daily range): BP systolic 83–166; BP diastolic 48–102; PULSE 81–134; RESP 0–47; TEMP 97.3–100.4; O2SAT 54–100
[2023-12-20 03:49] LABS: Hemoglobin 12.3 g/dL (13.5-17.5)
[2023-12-20 03:51] LABS: Hematocrit 37.6 % (41.0-53.0); Mean Corpuscular Hgb Conc. 32.8 g/dL (32.0-36.0); Mean Corpuscular Volume 88.5 fL (80.0-100.0); Red Blood Cells 4.24 10^6/uL (4.5-5.90); Red Cell Distribution Width 17.7 % (11.8-14.3); White Blood Cell 22.3 10^3/uL (4.4-10.8)
[2023-12-20 04:08] LABS: Basophils % (manual) 0 (0.0-2.0); Blast Cells 0; Eosinophils % (manual) 0 (0-7); Metamyelocytes % 0; Promyelocytes % 0; Reactive Lymphocytes 0
[2023-12-20 04:13] LABS: Albumin 2.5 g/dL (3.2-4.8); Alkaline Phosphatase 544 U/L (46-116); Anion Gap 15 (5-15); Bilirubin, Total 18.3 mg/dL (0.2-1.0); Calcium 6.7 mg/dL (8.7-10.4); Carbon Dioxide 22 mmol/L (20-30); Chloride 96 mmol/L (98-107); Glucose 111 mg/dL (74-106); Magnesium 2.1 mg/dL (1.6-2.6); Phosphorus 6.1 mg/dL (2.4-5.1); Potassium 5.3 mmol/L (3.5-5.1); Sodium 133 mmol/L (136-145)
[2023-12-20 04:31] LABS: Total Protein 3.9 g/dL (5.7-8.2)
[2023-12-20 04:38] LABS: Blood Urea Nitrogen 48 mg/dL (9-23)
[2023-12-20 04:53] LABS: Anisocytosis Slight; Band Neutrophils % (manual) 12; Giant Platelets Few; Large Platelets FEW; Lymphocytes % (manual) 2 (10.0-50.0); Monocytes % (manual) 4 (0-12); Myelocytes % 2; Ovalocytes FEW; Platelet Estimate Markedly Decreased
[2023-12-20 05:34] LABS: Aspartate Aminotransferase 1361 U/L (13-40)
[2023-12-20 05:35] LABS: Alanine Aminotransferase 1972 U/L (7-40)
[2023-12-20] MEDS ORDERED: SODIUM CHL 0.9% 1000 ML BAG XX ONE (07:00)
[2023-12-20] MEDS ORDERED: LORazepam 2MG/ML-1ML VIAL IV PRN (11:45)
[2023-12-20] MEDS ORDERED: MORPHINE SULFATE INJ 2 MG/ml SYRG IV PRN (11:45)
[2023-12-20 13:32] LABS: Base Excess -6.1 mmol/L (-2.0-2.0)
[2023-12-20] MEDS: VANCOMYCIN 500 MG in D5W 5% 100 ML IV ONE (14:13)
== END 2023-12-20 18:51 | DRG 870 ==
LOC: ER 01:31 → TELE 05:50 → ICU WEST 12-15 08:54
PROVIDERS: ADMIT Nurse Practitioner Family; ATTEND Nurse Practitioner Family
PROC: 02HV33Z Insertion of Infusion Device into Superior Vena Cava, Percutaneous Approach (ICD-10-PCS; principal; 2023-12-14)
PROC: B548ZZA Ultrasonography of Superior Vena Cava, Guidance (ICD-10-PCS; 2023-12-14)
PROC: 5A1955Z Respiratory Ventilation, Greater than 96 Consecutive Hours (ICD-10-PCS; 2023-12-14)
PROC: 0BH17EZ Insertion of Endotracheal Airway into Trachea, Via Natural or Artificial Opening (ICD-10-PCS; 2023-12-14)
PROC: 4A133B1 Monitoring of Arterial Pressure, Peripheral, Percutaneous Approach (ICD-10-PCS; 2023-12-14)
PROC: 05HY33Z Insertion of Infusion Device into Upper Vein, Percutaneous Approach (ICD-10-PCS; 2023-12-16)
PROC: B54MZZA Ultrasonography of Right Upper Extremity Veins, Guidance (ICD-10-PCS; 2023-12-16)
PROC: 5A1D70Z Performance of Urinary Filtration, Intermittent, Less than 6 Hours Per Day (ICD-10-PCS; 2023-12-16)
PROC: 30233R1 Transfusion of Nonautologous Platelets into Peripheral Vein, Percutaneous Approach (ICD-10-PCS; 2023-12-17)
PROC: 5A1D70Z Performance of Urinary Filtration, Intermittent, Less than 6 Hours Per Day (ICD-10-PCS; 2023-12-17)
PROC: 5A1D70Z Performance of Urinary Filtration, Intermittent, Less than 6 Hours Per Day (ICD-10-PCS; 2023-12-18)
PROC: 5A1D70Z Performance of Urinary Filtration, Intermittent, Less than 6 Hours Per Day (ICD-10-PCS; 2023-12-19)
PROC: 5A1D70Z Performance of Urinary Filtration, Intermittent, Less than 6 Hours Per Day (ICD-10-PCS; 2023-12-20)
DX: A41.51 Sepsis due to Escherichia coli [E. coli] (principal); I21.4 Non-ST elevation (NSTEMI) myocardial infarction; J96.01 Acute respiratory failure with hypoxia; R65.21 Severe sepsis with septic shock; N17.0 Acute kidney failure with tubular necrosis; K83.1 Obstruction of bile duct; K72.00 Acute and subacute hepatic failure without coma; J96.02 Acute respiratory failure with hypercapnia; I47.20 Ventricular tachycardia, unspecified; I42.0 Dilated cardiomyopathy; I47.10 Supraventricular tachycardia, unspecified; E46 Unspecified protein-calorie malnutrition; J44.9 Chronic obstructive pulmonary disease, unspecified; I50.9 Heart failure, unspecified; E87.5 Hyperkalemia; E66.9 Obesity, unspecified; I48.91 Unspecified atrial fibrillation; F15.10 Other stimulant abuse, uncomplicated; K21.9 Gastro-esophageal reflux disease without esophagitis; R74.01 Elevation of levels of liver transaminase levels; F17.200 Nicotine dependence, unspecified, uncomplicated; R57.0 Cardiogenic shock; K74.60 Unspecified cirrhosis of liver; N50.89 Other specified disorders of the male genital organs; D69.6 Thrombocytopenia, unspecified; K76.0 Fatty (change of) liver, not elsewhere classified; B19.20 Unspecified viral hepatitis C without hepatic coma; E11.9 Type 2 diabetes mellitus without complications; E78.00 Pure hypercholesterolemia, unspecified; I11.0 Hypertensive heart disease with heart failure; I25.2 Old myocardial infarction; Z88.0 Allergy status to penicillin; Z91.09 Other allergy status, other than to drugs and biological substances; Z79.899 Other long term (current) drug therapy; Z79.82 Long term (current) use of aspirin; Z91.119 Patient's noncompliance with dietary regimen due to unspecified reason; Z68.37 Body mass index [BMI] 37.0-37.9, adult; Z90.49 Acquired absence of other specified parts of digestive tract; Z99.2 Dependence on renal dialysis
CPT/HCPCS: 36415; 36556; 36600; 70450; 71045; 76700; 76870; 76937; 80048; 80053; 80061; 80074; 80202; 80307; 80320; 81001; 82140; 82248; 82550; 82570; 82805; 82947; 82962; 83010; 83605; 83615; 83735; 83880; 84100; 84132; 84156; 84300; 84484; 85007; 85025; 85027; 85049; 85362; 85384; 85610; 85730; 86850; 86900; 86901; 87040; 87070; 87077; 87081; 87086; 87088; 87186; 87205; 87340; 90935; 93005; 93306; 94002; 94003; 94640; 94645; 96365; 96366; 96372; 96375; 99291; G0378; J0171; J0330; J0692; J1642; J1815; J2185; J2470; J2543; J2704; J3430; J3490; J7060; J7131; P9047